=== PATIENT | male | born 1960 | race Caucasian/White ===

== ENCOUNTER → 2016-12-05 | Outpatient (CLI) | payer BC ==
--- NOTE | 2016-12-06 07:58 | HKNOTE ---
DATE OF SERVICE: 12/05/2016 MAIN COMPLAINT: Pain in the ____ knee. HISTORY OF MAIN COMPLAINT: The patient is a 56-year-old male who saw me more than 10 years ago, and I advised him that he would eventually need bilateral knee replacements. The patient had severe ar thritis back then, but note that he was maybe 46 years old and weighed 400 pounds and advised to los e weight in order to get him along without having surgery. He had already managed to lose 100 pound s with a gastric bypass operation. Because he thought I was still at the [facility] [place], he recently presente d himself at the [facility] [place]. [facility] that Dr. De León could manage his problem. In 09/2016, the patient underwent a ____ knee replacement by Dr. De León. He had extremely severe pain after the surgery and made a slow recov brian, and he also did not like the [facility]. Accordingly, he has decided to come and see me for possible surgery to his right knee. To complicate matters, the patient has a small unhealed spot ("scab") in the center of his inci gennaro. This has been draining for some time, but lately the drainage seems to have discontinued. Th e patient was put on Keflex by Dr. De León' physician's retail loan originator assistant. No cultures were obtained of t he wound. The patient continues to have severe pain in the right knee, and he states that he would like to hav e a right knee replacement "approximately around about December or January of this year." Note that radhika ent underwent a manipulation of the left knee for stiffness under general anesthetic, and this did n ot improve his range of motion very much. PRESENT COMPLAINTS: The patient's pain is in his right knee. He does have some mild pain in the le ft knee. He has had problems with the right knee for more than 22 years. His pain is aggravated by walking, weightbearing and stair climbing. He does get rest pain. He gets pain at night after he has been on his feet all day. The patient takes Butler several times a day for pain. He also takes tramadol. His best relief is "getting off my feet and lying down." He does have a history of probl ems with his lower back. He had an MRI scan which showed that he had a "herniated disk." He was tr eated with various anti-inflammatory medications and a muscle relaxant. He has no numbness or tingl ing in his legs. On a level surface, he can walk no more than about 100 yards at a time. He uses a cane at all times. He limps if he does not take any medications. He still limps with medications but much less. It is difficult for him to put on his shoes and socks or clip his toenails on either foot. SPORTING ACTIVITIES: The patient used to ski, hike and backpack, but he is no longer able to do any of those things. PAST ORTHOPEDIC HISTORY: PREVIOUS ORTHOPEDIC OPERATIONS: 1. Left knee arthroscopy by Dr. Orellana in 2001. 2. Right and left knee lateral releases by Dr. Ward Murdock in 1999. 3. Left total knee replacement by Dr. De León, 09/2016. PRIOR CORTISONE INTAKE: The patient has had prior cortisone injections into both knees. ALCOHOL INTAKE: Two alcoholic beverages a week. OTHER JOINT PROBLEMS: None. BLOOD TESTS FOR ARTHRITIS: None. PRIOR INJURIES TO HIPS OR KNEES: None. WORK STATUS: The patient is a career technical education teacher. He is on his feet about 6 hours a day. He has been off work since he had his left knee replacement, and he is hoping to get back to work around march of this year. PAST MEDICAL HISTORY: 1. Hypertension. 2. Diabetes. 3. Morbid obesity. PAST SURGICAL HISTORY: 1. Bilateral lateral releases on his knees by Dr. Murdock in 1999. 2. Left knee arthroscopy, Dr. Orellana, 2001. 3. Gastric bypass, 2006. 4. Gallbladder removed, 2015. 5. Left knee total knee replacement, Dr. De León, 2015. ALLERGIES TO MEDICATIONS: NONE. MEDICATIONS: 1. Butler 10/325 four times a day. 2. Prevacid 30 mg once a day. 3. Lipitor 10 mg a day. 4. Metaxalone 400 mg once a day. 5. Amlodipine 5 mg twice a day. 6. Zestril 40 mg once a day. 7. Metoprolol 100 mg twice a day. 8. Ativan 0.5 mg up to 3 times a day. 9. Voltaren gel 1% applied to the skin over his knee on a daily basis. 10. Keflex 500 mg 4 times a day given by Dr. De León' physician's retail loan originator assistant. FAMILY HISTORY: Father age 80, alive and well. Mother at 75 of cancer, diabetes and heart pro blems. SYSTEMS REVIEW: Age-related failing vision, excess night urination, hypertension, diabetes, occasio nal swelling of the ankles, habitual constipation. HABITS: The patient does not smoke. Drinks 2 to 3 alcoholic beverages a week. DRUM SAW OPERATOR: Dr. Danish Smith, [id number] [facility] [id number] [id number]. PHYSICAL EXAMINATION: GENERAL: The patient is a markedly overweight 56-year-old male. Remarkably, he walks fairly well u sing a cane. Without the cane, he has a marked antalgic gait. VITAL SIGNS: Height 5 feet 11 inches. Weight 310 pounds. Blood pressure 155/85, temperature 98.3. HIPS: Both hips have a full range of motion without pain. LEFT KNEE: Recent scar of recent surgery. Wound is healed, but there is a small scab in the middle of the wound which he has a Band-Aid on. The Band-Aid was removed. There was actually no drainage that could be expelled from the "scab." The patient indicates that he changes the Band-Aid daily a nd this is the first day that he has not had any drainage! He has no external sign of infection or inflammation. Extension is full, and flexion is to approximately 95 degrees. RIGHT KNEE: The left knee shows normal alignment. Active and passive extension lacks 15 degrees. Ac tive and passive flexion is to 100 degrees. The medial and lateral collateral ligaments and cruciate ligaments are intact. Ministerio test is negative. Varus alignment. There is 6+ crepitus in the knee and under the patella. There is no effusion, tenderness, scarring, or cysts. The patella tracks norm ally. There is no tenderness on the articular surface of the patella or in the patellar groove. The Q angle is normal. Pain at all limits of motion of the knee. IMAGING: Plain x-rays of the patient's right knee brought with the patient from the [facility] [place] were reviewed. The ____ knee showed a total knee replacement. All components are well placed and well attached to the bone. Imaging of the ____ knee shows exceedingly severe degenerative osteoarthritis of all 3 compartments of the knee but most severe in the medial compartment and patellofemoral compartment with bone-on-triny ne contact, subchondral sclerosis, large osteophytes around the distal femur and the patella. DIAGNOSES: 1. Exceedingly severe degenerative osteoarthritis of the ____ knee. 2. Status post ____ knee replacement. 3. A small unhealed scab on the anterior aspect of the ____ knee replacement scar. 4. Diabetes. 5. Hypertension. 6. Morbid obesity. MANAGEMENT: The patient has severe degenerative osteoarthritis of his right knee. He has had the c ondition for 22 years, and he has waited as long as he could before considering proceeding with knee replacement surgery. He is satisfied with Dr. De León' operation, but he hated the [facility], and he decided to see me in consultation in hope that I would perform the operation on his other knee and perform t he surgery "anywhere but [place]." The patient was advised that he is indeed a candidate for a right knee replacement. The surgery and some of the major possible complications were discussed with him in a fair amount of detail. The patient was given my manual titled "Arthritis of the Knee Joint" which contains information conc erning the various alternatives of treatment. It includes various forms of conservative treatment, i ncluding the use of nonsteroidal anti-inflammatory medications and their dangers. Various surgical a lternatives are discussed. The technique of total knee replacement is discussed in detail, including possible complications. Included also is a section on the possible complications of blood transfusi on, a section on postoperative precautions, and an exercise program to follow at home after total kn ee replacement. The long-term care of a total knee replacement implant is also covered in detail. Th e patient was instructed to read this manual in its entirety since it is, in and of itself, a form o f informed consent. After reading this manual, the patient will make a list of further questions zaki t may not have been covered adequately. The patient was further advised that this manual, although e xhaustive in nature, is only intended to supplement and complement a one-on-one discussion with me. FINAL DIAGNOSES: 1. Exceedingly severe degenerative osteoarthritis of the ____ knee. 2. Status post ____ knee replacement. 3. A small unhealed scab on the anterior aspect of the ____ knee replacement scar. 4. Diabetes. 5. Hypertension. 6. Morbid obesity. MANAGEMENT: Under sterile conditions, the left knee was aspirated to rule out infection. Clear, or kleber-colored fluid was obtained from the knee. Fluid was sent for cell count, culture and sensitivi ty. The patient is being sent for CBC, sedimentation rate and C-reactive protein. His antibiotic w as switched to Biaxin 500 mg p.o. q.i.d., which he will start taking today partly as a prophylaxis a gainst my sticking a needle in his knee and also to help the small unhealed scab heal. The patient was advised that we cannot operate on the other knee until the wound of the left knee re placement has completely healed. The patient indicates that he is not ready to proceed with the alex leslie at this time anyway. RETURN VISIT: The patient will be seen again in 2 weeks' time for evaluation of his lab data and fo r the further discussions about his surgery. Dictated By: MOHAMUD CORDERO/BASILIA Conf#: [id number] DID#: [id number]
== END | disposition home or self-care (01) ==
LOC: HKI 14:24
DX: M17.11 Unilateral primary osteoarthritis, right knee (principal); R23.4 Changes in skin texture; E11.9 Type 2 diabetes mellitus without complications; I10 Essential (primary) hypertension; E66.01 Morbid (severe) obesity due to excess calories; Z96.652 Presence of left artificial knee joint
CPT/HCPCS: 20610; G0463; J3301

== ENCOUNTER → 2016-12-19 | Outpatient (CLI) | payer BC ==
--- NOTE | 2016-12-20 07:00 | HKNOTE ---
DATE OF SERVICE: 12/19/2016 The wound over his left knee is now completely healed. The fluid aspirated from his left knee at nm s last visit obtained on 12/05/2016 is reported as showing no growth and no bacteria seen. No white cells seen either. The left knee has for all intents and purposes completely healed. There is no pain in the knee. He has a good range of motion. The patient comes in to discuss his right knee replacement. We spent considerable time talking abou t the technique I use (vastus split). The patient had his left knee replacement performed by Dr. Homar balderas. MANAGEMENT: These x-rays were reviewed. Knee surgery was discussed with him in terms of time and h ospital, postoperative recovery, etc. etc. The patient was given my manual titled "Arthritis of the Knee Joint" which contains information conc erning the various alternatives of treatment. It includes various forms of conservative treatment, i ncluding the use of nonsteroidal anti-inflammatory medications and their dangers. Various surgical a lternatives are discussed. The technique of total knee replacement is discussed in detail, including possible complications. Included also is a section on the possible complications of blood transfusi on, a section on postoperative precautions, and an exercise program to follow at home after total kn ee replacement. The long-term care of a total knee replacement implant is also covered in detail. Th e patient was instructed to read this manual in its entirety since it is, in and of itself, a form o f informed consent. After reading this manual, the patient will make a list of further questions zaki t may not have been covered adequately. The patient was further advised that this manual, although e xhaustive in nature, is only intended to supplement and complement a one-on-one discussion with me. The patient will have his surgery scheduling with my rehab care assistant, Bertin. [facility] Dictated By: MOHAMUD CORDERO/BASILIA Conf#: [id number] DID#: [id number]
== END | disposition home or self-care (01) ==
LOC: HKI 13:56
DX: Z04.8 Encounter for examination and observation for other specified reasons (principal); Z96.652 Presence of left artificial knee joint

== ENCOUNTER 2017-01-16 07:00 | Inpatient (IN) | payer BC ==
--- NOTE | 2017-01-13 13:39 | CONS ---
DATE OF ADMISSION: 01/16/2017 DATE OF CONSULTATION: REASON FOR ADMISSION: He is being admitted by Dr. Orellana on 01/16/2017 for planned right total knee replacement. HISTORY OF PRESENT ILLNESS: This is a 56-year-old gentleman with severe DJD of the right knee who i s to undergo definitive right total knee replacement per Dr. Orellana. The patient is several months out, status post a left total knee replacement with Dr. De León done over in [place]. He did have problems with stiffness postop. His surgery day was 09/23/2016 and ultimately he underw ent an examination under anesthesia on 11/19/2016, with improvement in his range of motion. He is now therefore ready to undergo definitive right total knee replacement with Dr. Orellana. For further orthopedic history, please see the full evaluation per Dr. Orellana. Medically, the patient has a known history of hypertension and diabetes, currently well controlled o n medications. He has not had any recent chest pain, shortness of breath, syncope, presyncope, or any palpitations. There have been no recent fevers, chills, sweats, nausea, vomiting, diarrhea or constipation. He did tolerate the recent left total knee replacement without any postoperative complications. PAST MEDICAL HISTORY: Please see full dictated problem list. ALLERGIES: NEXIUM. HABITS: Tobacco: None. Alcohol: None. CURRENT MEDICATIONS: 1. Chalmers 10/325 one to 2 tabs q.6h. p.r.n. pain. 2. Lorazepam 0.5 mg at bedtime p.r.n. 3. Lipitor 10 mg daily. 4. Skelaxin 400 mg q.8h. p.r.n. 5. Zestril 40 mg p.o. daily. 6. Lopressor 100 mg b.i.d. 7. Amlodipine 5 mg b.i.d. 8. Lansoprazole 30 mg daily. 9. Gabapentin 100 mg 3 caps at night. REVIEW OF SYSTEMS: As per HPI. PHYSICAL EXAMINATION: GENERAL: Awake and alert gentleman complaining of right knee pain, otherwise in no distress. VITAL SIGNS: He is afebrile, blood pressure 124/72, heart rate 72 and regular, respirations are 12 and unlabored, O2 saturation is normal on room air. SKIN: Warm, well perfused. HEAD: Normocephalic, atraumatic. EYES: Pupils are equal, round, reactive. Extraocular movements are full. Sclerae are anicteric. PHARYNX: No lesions. NECK: JVP is not distended. No adenopathy or thyromegaly. Carotids are 2+, no bruits. BACK: No CVAT. LUNGS: Clear. HEART: S1, S2, regular rate and rhythm, no murmurs. ABDOMEN: Obese, soft, nontender, well healed laparoscopy scars. There is no organomegaly, masses o r bruits. EXTREMITIES: No cyanosis or clubbing. He has 1 to 2+ chronic brawny type edema bilaterally. There is no calf pain, no Homans sign. LABORATORY DATA: Please see enclosed. PROBLEM LIST: 1. Severe DJD of the right knee for planned right total knee replacement. 2. Status post left total knee replacement on 09/23/2016. 3. Status post examination under anesthesia, left knee on 11/19/2016, with good response. 4. Hypertension, currently well controlled. 5. Hyperlipidemia, controlled on medications. 6. Noninsulin dependent diabetes mellitus, currently diet controlled. 7. Obesity status post prior gastric bypass with a Zac-en-Y procedure in March of 2007. 8. Iron deficiency anemia due to above, treated with IV Venofer as an outpatient. 9. GERD, currently controlled on PPI. 10. Prior history of cholecystitis status post laparoscopic cholecystectomy in 11/2015, asymptomati c since. 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 Currently, follow closely with EGD with Dr. Goff RECOMMENDATIONS: The patient is medically cleared for planned surgery. I will be happy to follow h im in the postoperative period. Dictated By: ADY FLANAGAN MD, MM/BASILIA Conf#: [id number] DID#: [id number]
[~2017-01-16] VITALS: Ht 180.3 cm; Wt 143.0 kg
[2017-02-06] MEDS ORDERED: KNEE PAIN COCKTAIL VANCO INJ SCH ×6 (05:30)
[2017-02-10 09:35] VITALS: BMI 44.7
[2017-02-12] MEDS ORDERED: KNEE PAIN COCKTAIL VANCO INJ SCH ×6 (18:30)
[2017-02-13] VITALS (29 sets, daily range): BP systolic 106–159; BP diastolic 47–82; PULSE 68–89; RESP 11–35; Ht 180.3 cm; Wt 143.0 kg
[2017-02-13] MEDS ORDERED: LACTATED RINGER'S 1,000 ML IV* SCH (06:00)
[2017-02-13] MEDS ORDERED: oxyCODONE (CR) 10 MG TAB [oxyCONTIN] PO ONE (06:00)
[2017-02-13] MEDS ORDERED: VANCOMYCIN 1 GM (PMX) 250 ML IVPB ONE (06:00)
[2017-02-13] MEDS ORDERED: CELECOXIB 200 MG CAP PO ONE (06:00)
[2017-02-13] MEDS ORDERED: TRANEXAMIC ACID 2,000 MG in SOD CHLORIDE 0.9% 100 ML IVPB ONE (06:00)
[2017-02-13] MEDS ORDERED: DEXAMETHASONE 4 MG/ML 1 ML INJ IV ONE (06:00)
[2017-02-13] MEDS ORDERED: ACETAMINOPHEN 1000MG/100ML IV 100 ML IVPB ONE (06:00)
[2017-02-13] MEDS ORDERED: LANSOPRAZOLE 30 MG CAP PO ONE (06:00)
[2017-02-13] MEDS ORDERED: ONDANSETRON 4 MG INJ IV ONE (06:00)
[2017-02-13] MEDS ORDERED: BUPIVACAINE 0.5%/EPI (SDV) 30 ML INJ ONE (06:43)
[2017-02-13] MEDS ORDERED: POLYMYXIN B 500000 UNIT INJ ONE (06:47)
[2017-02-13] MEDS ORDERED: VANCOMYCIN 1 GM INJ ONE (06:47)
[2017-02-13] MEDS ORDERED: BUPIVACAINE 0.25% (MPF) 30 ML INJ ONE (06:47)
[2017-02-13] MEDS ORDERED: METHYLENE BLUE 1% 10 ML INJ ONE (06:48)
[2017-02-13] MEDS ORDERED: TOBRAMYCIN 1.2 GM POWDER ONE (06:48)
--- NOTE | 2017-02-13 06:48 | HPN ---
Date/Time of Note Date/Time of Note DATE: 02/13/17 TIME: 06:48 Interval H&P Admission Note Pt. seen H&P reviewed: No system changes MELANY MALIK PA-C February 13, 2017 06:48
[2017-02-13] MEDS ORDERED: LISI40TA9 PO (07:08)
[2017-02-13] MEDS ORDERED: GABA300C PO (07:08)
[2017-02-13] MEDS ORDERED: ATOR10TA65 PO (07:08)
[2017-02-13] MEDS ORDERED: LORA-441 PO (07:08)
[2017-02-13] MEDS ORDERED: META400T PO (07:08)
[2017-02-13] MEDS ORDERED: AMLO-145 PO (07:08)
[2017-02-13] MEDS ORDERED: METO100T13 PO (07:08)
[2017-02-13] MEDS ORDERED: HYDR-902 PO (07:08)
[2017-02-13] MEDS ORDERED: DIPH25TA68 PO (07:08)
[2017-02-13] MEDS ORDERED: LANS30CA PO (07:08)
[2017-02-13] MEDS ORDERED: PSEU120T51 PO (07:08)
[2017-02-13] MEDS ORDERED: SOD CHLORIDE 0.9% 50 ML, TRANEXAMIC ACID 2,000 MG IRR SCH ×2 (07:30)
[2017-02-13] MEDS ORDERED: LIDOCAINE 2% (SDV) 5 ML INJ ONE (07:39)
[2017-02-13] MEDS ORDERED: PROPOFOL 20 ML ONE (07:39)
[2017-02-13] MEDS ORDERED: BUPIVACAINE 0.25%/EPI (SDV) 30 ML INJ INJ ONE (08:15)
[2017-02-13] MEDS ORDERED: VANCOMYCIN 1 GM INJ IRR ONE (08:18)
[2017-02-13] MEDS ORDERED: BACITRACIN 50000 UNITS INJ IRR ONE (08:19)
[2017-02-13] MEDS ORDERED: POLYMYXIN B 500000 UNIT INJ IRR ONE (08:20)
[2017-02-13] MEDS ORDERED: HYDROmorphONE 0.2 MG/ML PCA IV PRN (11:30)
[2017-02-13] MEDS ORDERED: MAGNESIUM HYDROXIDE 30ML CUP PO PRN (11:30)
[2017-02-13] MEDS ORDERED: DOCUSATE SODIUM 100 MG CAP PO ONE (11:30)
[2017-02-13] MEDS ORDERED: ZOLPIDEM 5 MG TAB PO PRN (11:30)
[2017-02-13] MEDS ORDERED: BETHANECHOL 25 MG TAB PO PRN (11:30)
[2017-02-13] MEDS ORDERED: DIPHENHYDRAMINE 50 MG INJ IM PRN (11:30)
[2017-02-13] MEDS ORDERED: NA PHOSPHATE/BIPHOS 133 ML ENEMA PR PRN (11:30)
[2017-02-13] MEDS ORDERED: COUMADIN NOTE XX SCH (11:30)
[2017-02-13] MEDS ORDERED: oxyCODONE 5 MG TAB PO PRN (11:30)
[2017-02-13] MEDS ORDERED: NALOXONE (0.4 MG/ML) INJ IV PRN (11:30)
[2017-02-13] MEDS ORDERED: TRANEXAMIC ACID IVPB ONE ×4 (11:30)
[2017-02-13] MEDS ORDERED: SOD CHLORIDE 0.9% IVPB ONE ×4 (11:30)
[2017-02-13] MEDS ORDERED: SENNA/DOCUSATE NA (8.6MG/50MG) TAB PO PRN (11:30)
[2017-02-13] MEDS ORDERED: MEPERIDINE 10 MG/ML 30 ML PCA IV PRN (11:30)
[2017-02-13] MEDS ORDERED: BISACODYL 10 MG SUPP PR PRN (11:30)
[2017-02-13] MEDS ORDERED: WARFARIN 7.5 MG TAB PO ONE (11:30)
--- NOTE | 2017-02-13 12:00 | RADRPT ---
PROCEDURE: XR right knee. CLINICAL INDICATION: Total knee replacement. TECHNIQUE: AP and lateral views are available for review. COMPARISON: No comparison available FINDINGS: There is a total knee replacement. There is no evidence of loosening of the prosthesis. There is no evidence of hardware failure. There are surgical instruments overlying the right knee The osseous st ructures are normal in mineralization, architecture and alignment No acute fracture or dislocation i s seen.No osseous lesions are identified. There are operative soft tissue changes . IMPRESSION: Unremarkable operative total knee replacement. RPTAT: HGDB .Yousif Jones MD, MD Date Time Electronically viewed and signed by .Yousif Jones MD, on 02/13/2017 11:59 .B/
[2017-02-13] MEDS: ACETAMINOPHEN 1000MG/100ML IV 100 ML IVPB SCH ×2 (12:06→19:50)
[2017-02-13] MEDS: ONDANSETRON 4 MG INJ IV SCH ×2 (12:06→17:57)
[2017-02-13] MEDS: CEFAZOLIN 1 GM/50 ML (PMX) 50 ML IVPB SCH ×2 (12:08→19:05)
--- NOTE | 2017-02-13 12:16 | RADRPT ---
PROCEDURE: Right knee radiographs. CLINICAL INDICATION: Right knee pain. Postop. TECHNIQUE: Two views. Frontal and lateral. COMPARISON: No prior studies are available for comparison. FINDINGS: There is no fracture or dislocation. Anterior skin olga and surgical drains are noted. There is gas in the soft tissues from the rece nt surgery. There is a total right knee constrained arthroplasty which appears satisfactory. There is no lytic or blastic lesion. There is no joint effusion. IMPRESSION: 1. Satisfactory postoperative appearance of the right knee. RPTAT: QQ .Abelardo Castillo MD, MD Date Time Electronically viewed and signed by .Abelardo Castillo MD, MD on 02/13/2017 12:16 .R/
--- NOTE | 2017-02-13 12:25 | CONS ---
Date/Time of Note Date/Time of Note DATE: 02/13/17 TIME: 12:21 Assessment/Plan Assessment/Plan Problems: (1) Total knee replacement status Comment: seen here in RR...doing fine... hemodyn stable (2) HTN (hypertension) Comment: good control (3) Hyperlipidemia Comment: on meds (4) Diabetes mellitus Comment: diet controlled...with do SS w coverage (5) GERD (gastroesophageal reflux disease) Comment: stable Consultation Date/Type/Reason Admit Date/Time February 13, 2017 at 05:50 Initial Consult Date Type of Consultation: im 24 HR Interval Summary Free Text/Dictation pt seen on RR...A&O.. min pain.. no cp or sob Exam/Review of Systems Vital Signs Vitals Vital Signs Date Time Temp Pulse Resp B/P Pulse Ox O2 Delivery O2 Flow Rate FiO2 02/13/17 11:22 100.2 02/13/17 06:00 69 18 132/76 97 Room Air Exam Constitutional: alert, oriented Neck: supple Respiratory: clear to auscultation Cardiovascular: regular rate and rhythm Gastrointestinal: nl liver, spleen, soft Extremities: normal pulses (Rt knee wrapped w drain in place) Results Results 24 hrs Laboratory Tests Test 02/13/17 06:31 02/13/17 11:22 Bedside Glucose 219 238 H Medications Medications Current Medications Ropivacaine/ Morphine Sulfate/ Clonidine/ Ketorolac Tromethamine/ Vancomycin HCl / Sodium Chloride INTRA-OP INJ Last administered on 02/13/17 08:16; Admin Dose 116 ML; Start 02/12/17 at 18:30; Stop 02/15/17 at 18:29 Sodium Chloride 50 ml/Tranexamic Acid 2000 mg INTRA-OP IRR Last administered on 02/13/17 08:21; Admin Dose 70 ML; Start 02/13/17 at 07:30; Stop 02/13/17 at 12: 30 Lactated Ringer's 1,000 ml @ 125 mls/hr Q8H IV* Last administered on 02/13/17 06:38; Admin Dose 125 MLS/HR; Start 02/13/17 at 06:00; Stop 02/13/17 at 13:59 Dextrose/Lactated Ringer's (D5-Lr) 1,000 ml @ 80 mls/hr [id number] IV ; Start 02/13 at 11:11 Hydromorphone HCl (Dilaudid FOUNDRY WORKER APPRENTICE) Q4PCA PRN IV SEVERE PAIN 8-10; Start 02/13/17 at 11:30; Stop 02/14/17 at 11:29 Meperidine HCl (Demerol FOUNDRY WORKER APPRENTICE) Q4PCA PRN IV SEVERE PAIN 8-10; Start 02/13/17 at 11:30; Stop 02/14/17 at 11:29 Oxycodone HCl (Roxicodone) 20 mg Q3H PRN PO PAIN LEVEL 8-10; Start 02/13/17 at 11:30 Oxycodone HCl (Roxicodone) 10 mg Q3H PRN PO PAIN LEVEL 4-7; Start 02/13/17 at 11 :30 Oxycodone HCl 5 mg 5 mg Q3H PRN PO PAIN LEVEL 1-3; Start 02/13/17 at 11:30 Acetaminophen (Ofirmev 1000mg/ 100ml Iv) 100 ml @ 400 mls/hr Q8H IVPB Last administered on 02/13/17 12:06; Admin Dose 400 MLS/HR; Start 02/13/17 at 11:30; Stop 02/15/17 at 03:44 Zolpidem Tartrate (Ambien) 5 mg HS PRN PO INSOMNIA; Start 02/13/17 at 11:30 Ondansetron HCl 4 mg 4 mg Q6H IV Last administered on 02/13/17 12:06; Admin Dose 4 MG; Start 02/13/17 at 11:30; Stop 02/14/17 at 05:31 Cefazolin Sodium (Ancef 1 Gm/50 ml (Pmx)) 50 ml @ 100 mls/hr Q8H IVPB Last administered on 02/13/17 12:08; Admin Dose 100 MLS/HR; Start 02/13/17 at 11:30; Stop 02/14/17 at 03:59 Miscellaneous Information (Note) NOTE XX ; Start 02/13/17 at 11:30 Dexamethasone (Decadron) 4 mg DAILY@07 IV ; Start 02/14/17 at 07:00; Stop at 06:59 Pantoprazole (Protonix Tab) 40 mg DAILY@06 PO ; Start 02/15/17 at 06:00 Docusate Sodium/ Ferrous Fumarate (Merary-Sequels) 1 tab BID PO ; Start 02/14/17 at 09:00 Docusate Sodium (Colace) 200 mg BID PO ; Start 02/14/17 at 09:00; Stop 02/17/17 at 08:59 Simethicone (Mylicon) 80 mg TID PRN PO DISTENSION/GAS/BLOATING; Start 02/13/17 at 11:30 Senna/Docusate Sodium (Senokot-S) 2 tab BID PRN PO CONSTIPATION; Start 02/13/17 at 11:30 Magnesium Hydroxide (Milk Of Mag) 30 ml HS PRN PO CONSTIPATION; Start 02/13/17 at 11:30 Bisacodyl (Dulcolax Supp) 10 mg DAILY PRN [place] CONSTIPATION; Start 02/13/17 at 11: 30 Sodium Biphosphate/ Sodium Phosphate (Fleet Enema) 133 ml DAILY PRN [place] CONSTIPATION; Start 02/13/17 at 11:30 Diphenhydramine HCl (Benadryl) 25 mg Q4H PRN IM ITCHING OR RASH; Start 02/13/17 at 11:30 Ketorolac Tromethamine (Toradol) 15 mg DAILY@06 PRN INJ ADMINSTER BY SURGEON ONLY; Start 02/14/17 at 06:00; Stop 02/18/17 at 05:59 Bupivacaine HCl/ Epinephrine Bitart (Marcaine 0.25%/ Epi (Sdv) 30 ml) 20 ml DAILY@06 PRN INJ ADMINSTER BY SURGEON ONLY; Start 02/14/17 at 06:00; Stop at 05:59 Naloxone HCl (Narcan) 0.2 mg Q2M PRN IV DECREASED REPIRATORY RATE; Start at 11:30 Warfarin Sodium (Coumadin) 5 mg NOW ONCE PO ; Start 02/13/17 at 12:30; Stop 02/13 at 12:31; Status UNV ADY FLANAGAN MD February 13, 2017 12:25
[2017-02-13] MEDS ORDERED: morphine (1 MG/ML) 10ML SYRINGE IV PRN ×2 (12:30)
[2017-02-13] MEDS ORDERED: METOCLOPRAMIDE 10 MG INJ IV PRN (12:30)
[2017-02-13] MEDS ORDERED: MEPERIDINE 25 MG INJ IV PRN (12:30)
[2017-02-13] MEDS ORDERED: HYDROmorphONE (0.2 MG/ML) 10ML SYG IV PRN ×2 (12:30)
[2017-02-13] MEDS ORDERED: WARFARIN 5 MG TAB PO ONE (12:30)
[2017-02-13] MEDS ORDERED: EPHEDrine SULFATE 50 MG/5 ML SYG IV PRN (12:30)
[2017-02-13] MEDS ORDERED: FENTAnyl 50 MCG/ML VIAL IV PRN ×2 (12:30)
[2017-02-13] MEDS ORDERED: DIPHENHYDRAMINE 50 MG INJ IV PRN (12:30)
[2017-02-13] MEDS ORDERED: hydrALAzine 20 MG INJ IV PRN (12:30)
[2017-02-13] MEDS ORDERED: MIDAZOLAM 1 MG/ML 2 ML INJ IV PRN (12:30)
[2017-02-13] MEDS ORDERED: LABETALOL HCL 20MG INJ IV PRN (12:30)
[2017-02-13] MEDS ORDERED: ONDANSETRON 4 MG INJ IV PRN (12:30)
[2017-02-13] MEDS ORDERED: GLUCOSE GEL 15 GRAM TUBE PO PRN ×2 (13:00)
[2017-02-13] MEDS ORDERED: GLUCOSE GEL 15 GRAM TUBE BUCCAL PRN (13:00)
[2017-02-13] MEDS ORDERED: DEXTROSE 50% 50 ML SYRINGE IV PRN ×2 (13:00)
[2017-02-13] MEDS ORDERED: GLUCAGON 1 MG INJ IM PRN (13:00)
[2017-02-13] MEDS: DEXTROSE 5%-LR 1,000 ML IV SCH ×2 (15:42→23:41)
[2017-02-13] MEDS: INSULIN ASPART [NOVOLOG] 3 ML PEN SC SCH ×2 (17:57→20:58)
[2017-02-13] MEDS: METOPROLOL 100 MG TAB PO SCH (20:52)
[2017-02-13] MEDS: ATORVASTATIN 10 MG TAB PO SCH (20:52)
[2017-02-13] MEDS: oxyCODONE 5 MG TAB PO PRN (21:00)
[2017-02-14] VITALS: BP 160/90; PULSE 82; RESP 18
[2017-02-14] MEDS: oxyCODONE 5 MG TAB PO PRN ×6 (00:22→21:31)
[2017-02-14] MEDS: ONDANSETRON 4 MG INJ IV SCH ×2 (00:22→06:11)
[2017-02-14 00:39] VITALS: BP 162/90; RESP 20
[2017-02-14] MEDS: ACCU-CHEK XX SCH (02:00)
[2017-02-14] MEDS: ACETAMINOPHEN 1000MG/100ML IV 100 ML IVPB SCH ×3 (03:44→19:34)
[2017-02-14] MEDS: CEFAZOLIN 1 GM/50 ML (PMX) 50 ML IVPB SCH (04:18)
[2017-02-14 04:22] VITALS: BP 152/75; PULSE 79; RESP 18
[2017-02-14 05:14] LABS: ADD SCAN DIFF NO
[2017-02-14 05:18] LABS: BASOPHILS % 0.2 % (0.0-2.0); EOSINOPHILS % 0.1 % (0.0-7.0); HEMATOCRIT 33.3 % (42.0-52.0); HEMOGLOBIN 10.9 g/dl (14.0-18.0); LYMPHOCYTES # 2.2 10^3/ul (0.8-2.9); LYMPHOCYTES % 17.1 % (15.0-51.0); MEAN CORPUSCULAR HGB CONC 32.7 g/dl (32.0-37.0); MEAN CORPUSCULAR VOLUME 82.6 fl (82.0-101.0); MEAN PLATELET VOLUME 9.9 fl (7.4-10.4); MONOCYTE # 1.3 10^3/ul (0.3-0.9); MONOCYTES % 10.2 % (0.0-11.0); NEUTROPHIL # 9.4 10^3/ul (1.6-7.5); NEUTROPHILS % 71.7 % (39.0-77.0); PLATELET COUNT 270 10^3/UL (140-415); RED BLOOD COUNT 4.03 10^6/ul (4.70-6.10); RED CELL DISTRIBUTION WIDTH 14.3 % (11.5-14.5); WHITE BLOOD COUNT 13.1 10^3/ul (4.8-10.8)
[2017-02-14 05:40] LABS: INR 1.05; PROTIME 13.7 Sec (12.2-14.2); PT RATIO 1.1
[2017-02-14 05:45] LABS: ALBUMIN 3.5 g/dl (3.3-4.9); ALBUMIN/GLOBULIN RATIO 1.16; BILIRUBIN,INDIRECT 0.7 mg/dl (0-1.1); BILIRUBIN,TOTAL 0.7 mg/dl (0.2-1.3); CALCIUM 8.8 mg/dl (8.4-10.2); CREATININE 0.64 mg/dl (0.61-1.24); POTASSIUM 3.6 mmol/L (3.5-5.1); TOTAL PROTEIN 6.5 g/dl (6.1-8.1)
[2017-02-14] MEDS ORDERED: BUPIVACAINE 0.25%/EPI (SDV) 30 ML INJ INJ PRN (06:00)
[2017-02-14] MEDS ORDERED: KETOROLAC 15 MG INJ INJ PRN (06:00)
[2017-02-14] MEDS: DEXAMETHASONE 4 MG/ML 1 ML INJ IV SCH (07:00)
--- NOTE | 2017-02-14 08:02 | PN ---
Date/Time of Note Date/Time of Note DATE: 02/14/17 TIME: 07:59 Assessment/Plan VTE Prophylaxis VTE Prophylaxis Intervention: ambulation, SCD's, other (Warfarin 5 mg. Currently being monitored by internal medicine.) Lines/Catheters IV Catheter Type (from Nrsg): Peripheral IV Valero in Place (from Nrsg): No Assessment/Plan Assessment/Plan -Hemovac Removed Today. Overall 420 cc output. -Pain Cocktail Given -Pain Meds as needed -Dress change performed today -OOB with PT -Warfarin/SCDs for DVT Prophylaxis -Continue monitoring with Internal Medicine -Patient Stable Subjective 24 Hr Interval Summary 56-year-old male postop day 1 status post right total knee arthroplasty. Patient had increased drainage since the surgery of around 420 cc output. Overall red blood cell and hemoglobin are lower but so far internal medicine does not recommend infusion as he is also having no symptoms. Patient states that overall he is okay. Denies any chest pain/tightness. In regards to the knee patient did have some discomfort initially but experiencing no pain now. Patient did have physical therapy after surgery yesterday. Up and out of bed with use of front wheeled walker. Denies any calf pain. Continues to progress well. Dexamethasone was stopped due to increased glucose with pre-existing history of diabetes. Pain Control: well controlled Exam/Review of Systems Vital Signs Vitals Vital Signs Date Time Temp Pulse Resp B/P Pulse Ox O2 Delivery O2 Flow Rate FiO2 02/14/17 04:22 98.3 79 18 152/75 98 Room Air 02/13/17 17:44 2.0 Intake and Output 02/13/17 02/13/17 02/14/17 14:59 22:59 06:59 Intake Total 1140 ml 1208.6 ml 1530 ml Output Total 270 ml 2050 ml 1300 ml Balance 870 ml -841.4 ml 230 ml Exam Free Text/Dictation -Hemovac: Intact. 120 cc output after previous 300 cc output was removed yesterday. -Pain Cocktail Drains: Intact -Incision: Clean, Dry and Intact without any redness or drainage -02/14 Tibialis Anterior, EHL Gastrocnemius/Soleus and Peroneals -Normal Sensation -Palpable DP/PT, Capillary Refill <2 secs -No Distal Edema -Negative Theresa Sign/No calf pain -Toes Freely Movable Constitutional: alert, oriented, well developed Results Result Diagram: 02/14/17 0450 02/14/17 0450 MELANY MALIK PA-C February 14, 2017 08:02
--- NOTE | 2017-02-14 08:07 | PDOCDIS ---
Discharge Instructions DIAGNOSIS Discharge Diagnosis: Status post right total knee replacement. CONDITION Patient Condition: Stable HOME CARE INSTRUCTIONS: Diet Instructions: Regular ACTIVITY: Activity Restrictions: Slowly Increase Activity Rest between Activity Avoid heavy lifting No Sexual Activity Do not Drive Do not operate Machinery Do not operate Power Tool Avoid Heavy Housework Keep Limb Elevated (With ice while at rest.) Weight Bearing (As tolerated. May use front wheeled walker for assisted ambulation.) Bathing Restrictions: Shower (Using Tegaderm with pad. Apply prior to shower. Pat region dry before removing Tegaderm. Repeat instructions each day with new Tegaderm dressing until olga are removed around 10 days postoperatively.) FOLLOW UP/APPOINTMENTS Appointments March 04, 2017 at 2:15 PM MELANY MALIK PA-C February 14, 2017 08:07
[2017-02-14 08:17] VITALS: BP 156/78; RESP 18
--- NOTE | 2017-02-14 08:27 | CONS ---
Date/Time of Note Date/Time of Note DATE: 02/14/17 TIME: 08:25 Assessment/Plan Assessment/Plan Additional Assessment/Plan 1. Stable post op right knee replacement, on Coumadin for dvt prophylaxis 2. DM, sugar control acceptable for now 3. Hx gastric bypass 4. HBP, controlled Consultation Date/Type/Reason Admit Date/Time February 13, 2017 at 05:50 Initial Consult Date Type of Consultation: im Detailed Summary Respiratory: No cough, No shortness of breath Cardiovascular: No chest pain, No lightheadedness Gastrointestinal: No no complaints Genitourinary: no complaints Musculoskeletal: bone/joint pain (mild right knee discomfort) Exam/Review of Systems Vital Signs Vitals Vital Signs Date Time Temp Pulse Resp B/P Pulse Ox O2 Delivery O2 Flow Rate FiO2 02/14/17 08:17 98.0 77 18 156/78 97 02/14/17 04:22 Room Air 02/13/17 17:44 2.0 Intake and Output 02/13/17 02/13/17 02/14/17 15:00 23:00 07:00 Intake Total 1140 ml 1208.6 ml 1530 ml Output Total 270 ml 2050 ml 1300 ml Balance 870 ml -841.4 ml 230 ml Exam Neck: No jvd Respiratory: clear to auscultation Cardiovascular: regular rate and rhythm Gastrointestinal: soft Extremities: No edema (and no calf tend) Results Result Diagram: 02/14/17 0450 02/14/17 0450 Results 24 hrs Laboratory Tests Test 02/13/17 11:22 02/13/17 15:47 02/13/17 20:51 02/14/17 02:13 Bedside Glucose 238 H 293 H 261 H 185 Test 02/14/17 04:50 02/14/17 07:56 White Blood Count 13.1 H Red Blood Count 4.03 L Hemoglobin 10.9 L Hematocrit 33.3 L Mean Corpuscular Volume 82.6 Mean Corpuscular Hemoglobin 27.0 L Mean Corpuscular Hemoglobin Concent 32.7 Red Cell Distribution Width 14.3 Platelet Count 270 Mean Platelet Volume 9.9 Neutrophils % 71.7 Lymphocytes % 17.1 Monocytes % 10.2 Eosinophils % 0.1 Basophils % 0.2 Nucleated Red Blood Cells % 0.0 Neutrophils # 9.4 H Lymphocytes # 2.2 Monocytes # 1.3 H Eosinophils # 0.0 Basophils # 0.0 Nucleated Red Blood Cells # 0.0 Prothrombin Time 13.7 Prothrombin Time Ratio 1.1 INR International Normalized Ratio 1.05 Sodium Level 134 L Potassium Level 3.6 Chloride Level 102 Carbon Dioxide Level 27 Anion Gap 9 Blood Urea Nitrogen 13 Creatinine 0.64 Glucose Level 168 Hemoglobin A1c 8.6 H Calcium Level 8.8 Total Bilirubin 0.7 Direct Bilirubin 0.00 Indirect Bilirubin 0.7 Aspartate Amino Transf (AST/SGOT) 54 H Alanine Aminotransferase (ALT/SGPT) 46 Alkaline Phosphatase 103 Total Protein 6.5 Albumin 3.5 Globulin 3.00 Albumin/Globulin Ratio 1.16 Bedside Glucose 187 Medications Medications Current Medications Ropivacaine 60 ml/ Morphine Sulfate 4 mg/Clonidine 100 mcg/Ketorolac Tromethamine 30 mg/Vancomycin HCl 500 mg/Sodium Chloride 50 ml INTRA-OP INJ Last administered on 02/13/17 08:16; Admin Dose 116 ML; Start 02/12/17 at 18:30; Stop 02/15/17 at 18:29 Dextrose/Lactated Ringer's (D5-Lr) 1,000 ml @ 80 mls/hr [id number] IV Last administered on 02/13/17 15:42; Admin Dose 80 MLS/HR; Start 02/13/17 at 11:11 Hydromorphone HCl (Dilaudid CONTINUOUS VULCANIZING MACHINE OPERATOR) Q4PCA PRN IV SEVERE PAIN 8-10; Start 02/13/17 at 11:30; Stop 02/14/17 at 11:29 Meperidine HCl (Demerol CONTINUOUS VULCANIZING MACHINE OPERATOR) Q4PCA PRN IV SEVERE PAIN 8-10; Start 02/13/17 at 11:30; Stop 02/14/17 at 11:29 Oxycodone HCl (Roxicodone) 20 mg Q3H PRN PO PAIN LEVEL 8-10 Last administered on 02/14/17 03:33; Admin Dose 20 MG; Start 02/13/17 at 11:30 Oxycodone HCl (Roxicodone) 10 mg Q3H PRN PO PAIN LEVEL 4-7 Last administered on 02/14/17 00:22; Admin Dose 10 MG; Start 02/13/17 at 11:30 Oxycodone HCl 5 mg 5 mg Q3H PRN PO PAIN LEVEL 1-3; Start 02/13/17 at 11:30 Acetaminophen (Ofirmev 1000mg/ 100ml Iv) 100 ml @ 400 mls/hr Q8H IVPB Last administered on 02/14/17t 03:44; Admin Dose 400 MLS/HR; Start 02/13/17 at 11:30; Stop 02/15/17 at 03:44 Zolpidem Tartrate (Ambien) 5 mg HS PRN PO INSOMNIA; Start 02/13/17 at 11:30 Miscellaneous Information (Note) NOTE XX ; Start 02/13/17 at 11:30 Dexamethasone (Decadron) 4 mg DAILY@07 IV ; Start 02/14/17 at 07:00; Stop at 06:59 Pantoprazole (Protonix Tab) 40 mg DAILY@06 PO ; Start 02/15/17 at 06:00 Docusate Sodium/ Ferrous Fumarate (Merary-Sequels) 1 tab BID PO ; Start 02/14/17 at 09:00 Docusate Sodium (Colace) 200 mg BID PO ; Start 02/14/17 at 09:00; Stop 02/17/17 at 08:59 Simethicone (Mylicon) 80 mg TID PRN PO DISTENSION/GAS/BLOATING; Start 02/13/17 at 11:30 Senna/Docusate Sodium (Senokot-S) 2 tab BID PRN PO CONSTIPATION; Start 02/13/17 at 11:30 Magnesium Hydroxide (Milk Of Mag) 30 ml HS PRN PO CONSTIPATION; Start 02/13/17 at 11:30 Bisacodyl (Dulcolax Supp) 10 mg DAILY PRN CA CONSTIPATION; Start 02/13/17 at 11: 30 Sodium Biphosphate/ Sodium Phosphate (Fleet Enema) 133 ml DAILY PRN CA CONSTIPATION; Start 02/13/17 at 11:30 Diphenhydramine HCl (Benadryl) 25 mg Q4H PRN IM ITCHING OR RASH; Start 02/13/17 at 11:30 Ketorolac Tromethamine (Toradol) 15 mg DAILY@06 PRN INJ ADMINSTER BY SURGEON ONLY; Start 02/14/17 at 06:00; Stop 02/18/17 at 05:59 Bupivacaine HCl/ Epinephrine Bitart (Marcaine 0.25%/ Epi (Sdv) 30 ml) 20 ml DAILY@06 PRN INJ ADMINSTER BY SURGEON ONLY; Start 02/14/17 at 06:00; Stop at 05:59 Naloxone HCl (Narcan) 0.2 mg Q2M PRN IV DECREASED REPIRATORY RATE; Start at 11:30 Atorvastatin Calcium (Lipitor) 10 mg HS PO Last administered on 02/13/17 20:52 ; Admin Dose 10 MG; Start 02/13/17 at 21:00 Lisinopril (Zestril) 40 mg DAILY PO ; Start 02/14/17 at 09:00 Amlodipine Besylate (Norvasc) 5 mg DAILY PO ; Start 02/14/17 at 09:00 Metoprolol Tartrate (Lopressor) 100 mg BID PO Last administered on 02/13/17 20: 52; Admin Dose 100 MG; Start 02/13/17 at 21:00 Diagnostic Test (Pha) (Accu-Chek) 1 ea 02 XX ; Start 02/14/17 at 02:00 Miscellaneous Information 1 ea NOTE XX ; Start 02/13/17 at 13:00 Glucose (Glutose) 15 gm Q15M PRN PO DECREASED GLUCOSE; Start 02/13/17 at 13:00 Glucose (Glutose) 22.5 gm Q15M PRN PO DECREASED GLUCOSE; Start 02/13/17 at 13:00 Dextrose (D50w Syringe) 25 ml Q15M PRN IV DECREASED GLUCOSE; Start 02/13/17 at 13:00 Dextrose (D50w Syringe) 50 ml Q15M PRN IV DECREASED GLUCOSE; Start 02/13/17 at 13:00 Glucagon (Glucagen) 1 mg Q15M PRN IM DECREASED GLUCOSE; Start 02/13/17 at 13:00 Glucose (Glutose) 15 gm Q15M PRN BUCCAL DECREASED GLUCOSE; Start 02/13/17 at 13: 00 WINSTON CRUZ MD February 14, 2017 08:27
[2017-02-14] MEDS ORDERED: WARFARIN 7.5 MG TAB PO SCH ×2 (08:30→17:00)
[2017-02-14] MEDS: INSULIN ASPART [NOVOLOG] 3 ML PEN SC SCH ×4 (08:45→20:27)
[2017-02-14] MEDS: DOCUSATE SODIUM 100 MG CAP PO SCH ×2 (08:53→20:15)
[2017-02-14] MEDS: FERROUS FUMARATE (SR) TAB PO SCH ×2 (08:53→20:15)
[2017-02-14] MEDS: LISINOPRIL 20 MG TAB PO SCH (08:54)
[2017-02-14] MEDS: AMLODIPINE 5 MG TAB PO SCH (08:54)
[2017-02-14] MEDS: METOPROLOL 100 MG TAB PO SCH ×2 (08:55→20:15)
[2017-02-14] MEDS: DEXTROSE 5%-LR 1,000 ML IV SCH (12:11)
[2017-02-14 14:00] VITALS: BP 130/74; PULSE 74; RESP 18
--- NOTE | 2017-02-14 14:45 | OPR ---
DATE OF OPERATION: TOTAL KNEE REPLACEMENT TEMPLATE #1 SURGEON: Herbert. Esteban MD MACHINE PACKAGE SEALER: Dex Ayoub ANESTHESIOLOGIST: Dr. Gupta PREOPERATIVE DIAGNOSIS: Exceedingly severe degenerative osteoarthritis of the right knee. POSTOPERATIVE DIAGNOSIS: Exceedingly severe degenerative osteoarthritis of the right knee. OPERATION PERFORMED: Total knee replacement (arthroplasty of the knee, condylar plateau medial and lateral compartments with patella resurfacing, CPT 14691). FINDINGS AT SURGERY: The patient found to have exceedingly severe degenerative osteoarthritis of th e right knee affecting all three compartments of the knee. His bone quality was adequate, but not a s good as one might expect from a 56-year-old male. The patellar tendon attachment to the tibia was somewhat tenuous and was therefore reinforced with a Mitek anchor. The arthritis of the knee was f ound to be exceedingly severe, affecting all three compartments of the knee. The intercondylar notc h was practically overgrown with osteophytes. There were huge osteophytes around the entire distal femoral condyles. There is no remaining articular cartilage on the patella. JUSTIFICATION FOR SURGERY: The knee was found to have end-stage osteoarthritis. The patient is a v brian active 56-year-old male whose lifestyle is markedly affected by the arthritic knee. He had prev iously had a left knee replacement, but he is still quite incapacitated on account of his right knee . An extensive course of conservative care has been tried prior to embarking on the knee replacemen t operation. There can be no reasonable expectation that any further conservative treatment will ma ke any improvement to this patient's pain level and lifestyle. The risks and complications of the s urgery were discussed with the patient at the preoperative visit as well as the risks and possible c omplications of blood transfusion using hospital blood. The patient is agreeable to using hospital blood if needed. DESCRIPTION OF PROCEDURE: The patient was given intravenous antibiotics 1 hour prior to surgery. A n epidural anesthetic was initiated in the ICU holding area. The patient was taken to the operating room and given a light general anesthetic. The leg, foot, and ankle were prepared and draped in th e usual sterile fashion. The center of the ankle was marked at the midpoint between the 2 malleoli with a sterile marking pen. A tourniquet around the thigh was inflated to 275 mmHg after the leg crowell d been exsanguinated using an Esmarch bandage. The tourniquet was inflated at the initiation of pro cedure for a short period and was then again reinflated at the time of cementing the components part s. The total tourniquet time was ____minutes. A longitudinal incision was made over the anterior aspect of the knee. The incision extended from t he tibial tubercle to a point just above the patella. The medial capsule was exposed by sharp and b bill dissection, and was incised 1/4 inch medial to the patella. A marking stitch was set on each s mohit of the incision at the midpoint of the capsule so as to enable accurate reapproximation at the e nd of the operation. A vastus split was made in the vastus medialis extending from the superior nathalie e of the patella for approximately 5 cm between the line with the muscle fibers. The ends of the mu scle split at the patella were marked with a marking stitch on each side for later accurate reapprox imation. The patella was reflected laterally and osteophytes around the rim of the patella were rem ady. Osteophytes along the lateral femoral condyle were removed so as to facilitate lateral reflec tion of the patella. Posteromedial osteophytes were removed on the lateral side as well, so as to f ree up the lateral collateral ligament. Medial femoral osteophytes and posteromedial femoral osteop hytes were also removed at this time. This allowed for the knee to be brought into a more normal al ignment. A segment of bone was cut from the articular surface of the patella using a caliper to det ermine the exact thickness to be removed. The remaining thickness of the patella was 18 mm. The kn ee was flexed, and the patella was displaced laterally without eversion. Osteophytes in the femoral notch were removed. The remnants of the medial and lateral menisci were excised and the cruciate l igaments were excised. The medial collateral ligament was elevated as an osteo-periosteal flap from the proximal tibia. The distal end of the medial collateral ligament remained attached to the tibi a throughout the operation. The tibia was retracted forward with Hohmann retractor, inserted biometric fingerprinting technician ior to the midpoint of the proximal tibia. The tibial jig was set in place in such a way as to alig n longitudinally with the anterior tibial spine, with the junction of the middle and medial 2/3 of t he patella tendon, and with the posterior intercondylar eminence of the tibia. An AP and lateral x- ray was obtained with the alignment jig in place. This showed that the alignment was satisfactory a fter some slight adjustments were made. The posterior slope of the tibia was set at 6 degrees. The tibial cutting block was attached to the proximal tibia with 2 Steinmann pins. An external alignme nt barney was placed on the cutting block to confirm the alignment of the cutting block. An Medardo Wing feeler gauge was now placed on the superior aspect of the cutting block to further confirm the post erior slope of the tibia and the depth of the cut to be made. An oscillating saw was used to remove an appropriate amount of bone from the proximal tibia with the healthy side being used to measure t he cutting depth. The lateral femoral condyle of the distal femur was measured to determine the amy ropriate size for the femoral component. The anterior condyle of the femur was partially removed wi th a rongeur. A medium-sized cutting block was attached to the distal femur with 2 Steinmann pins t hrough the pin holes in the block. The external alignment jig of this cutting block was lined up wi th the anterior surface of the femur and a central intercondylar hole for the intramedullary barney was drilled through the hole in the alignment block. The block was removed. A long [place] nozzle wa s used to flush fat from the intramedullary canal. The appropriately sized cutting block was now at tached to the femur by means of an intramedullary barney. The linking guide was inserted into the slot in the base of the femoral cutting block with the knee set at 90 degrees of flexion and with the li nking guide set flush with the proximal tibial cut in order to set the appropriate rotational alignm ent on the femoral cutting block. Ligament balance was checked at this point and was found to be ve ry satisfactory. Once the rotational alignment had been determined, and the ligaments found to be b alanced, the femoral cutting block was secured to the distal femur with 2 Steinmann pins. The anter ior and posterior cuts of the distal femur were made off the femoral cutting block. The cutting blo ck was removed and a spacer block was used to measure the flexion gap which was found to be 12.5 mm. The same spacer block size without the femoral element was used with the leg in extension to determi ne the amount of distal femur to be removed in the transverse plane. A 5-degree distal cutting bloc k was now set on the femoral intramedullary barney, and the barney was inserted into the intramedullary ca nal. The appropriate amount of bone to be removed was determined. The femoral cutting block was pi nned to the anterior surface of the femur with 2 Steinmann pins. The appropriate amount of bone was resected off the distal femur to give an extension gap equal to the thickness of the flexion gap. The cut needed to be repeated after initial cut in order to produce an extension gap the same size a s the flexion gap. By using the appropriate cutting blocks, the rest of the femoral cuts were made. The femoral trial component was installed and was found to fit perfectly. The femoral trial component was removed. T shakir proximal tibia was sized, and the appropriate tibial tray selected. The central fixation hole in the tibia was made using the tibial tray template and the appropriate instruments. The femoral and tibial trials and the trial tibial insert were installed, and the patella was prepared to accept th e 38 mm-sized dome component. The trial components were all removed. The tourniquet was inflated. Soft tissues around the knee, especially the posterior capsule, were injected with a mixture of Sea opin, Toradol, morphine, and clonidine. The cut surfaces of the bones were cleaned with pulsatile W ater Jet lavage and thoroughly dried. Sclerotic bone surfaces were drilled with a 1/8-inch drill. The tibial trial component was installed with methyl methacrylate cement followed by the femoral com ponent and finally the patellar component. Cement was used on all 3 components. The cement was fin stephanie packed into the cut surfaces of the bone and pressurized with a rubber dam in order to get good interdigitation of the cement into the bone. A lateral x-ray of the knee was obtained while the reyna ent was hardening with the 12.[address] This showed that the 12.5 mm insert was the amy ropriate size. Once the cement was hard, the knee was again put through a range of motion with the 12.5 [address] insert trial in place, and this appeared to be giving a good degree of tension on the ligame nts. The cut edges of the medial capsule were held together at the midpoint with a towel clip, and t he knee was put through a full range of motion. The patella was found to track satisfactorily. A l ateral release was not required. At this point, the patella was found to track very well in the pat ellar groove of the femoral component. The knee was frequently irrigated with normal saline containing antibiotics with pulsatile lavage th roughout the entire operation as a prophylactic measure against infection. Once the cement was hard , the tourniquet was released. Bleeding points were cauterized. The total tourniquet time was ____ . The patient's vital signs remained stable throughout the operation. The permanent rotating bearing was installed. Superficial and deep Hemovac drains were set in place . The wound was closed using interrupted Vicryl on the capsule with FiberWire used at strategic poi nts such as the attachment of the distal ends of the vastus medialis at the split, and the tibial te ndon was also attached to the osteo-periosteal flap with FiberWire. The rest of the medial capsule was closed with interrupted Vicryl. A subcuticular stitch was inserted and olga were used on the skin. The usual sterile dressings were applied. A Madhu-Law compression dressing was applied a fter a sterile cooling pad had been set in place against the deep tissues by sterile cast padding. The patient's condition at the end of the procedure was satisfactory. Vital signs remained stable t hroughout the operation. The patient returned to the recovery room in stable condition. X-rays wer e obtained in the recovery room. Calf pumps were applied to both legs in the operating room. There were no problems or complications as far as we know. The sponge and instrument counts were correct . COMPONENT INFORMATION: KNEE IMPLANT TYPE: LCS. FEMORAL COMPONENT SIZE: Large TIBIAL COMPONENT SIZE: 4 PATELLAR COMPONENT SIZE: 38 mm patellar dome TIBIAL INSERT: 12.5 mm deep dish mobile bearing. IMPLANT BENEFITS COUNSELOR: [employer] [place], [place]. TOTAL TOURNIQUET TIME: ____ TOTAL BLOOD LOSS: Approximately 150 mL Dictated By: MOHAMUD CORDERO/BASILIA Conf#: [id number] DID#: [id number]
[2017-02-14 19:25] VITALS: BP 170/78; RESP 20
[2017-02-14] MEDS: ATORVASTATIN 10 MG TAB PO SCH (20:15)
[2017-02-15] MEDS: DEXTROSE 5%-LR 1,000 ML IV SCH (00:41)
[2017-02-15 01:00] VITALS: BP 157/74; PULSE 78; RESP 18
[2017-02-15] MEDS: oxyCODONE 5 MG TAB PO PRN ×6 (01:00→23:37)
[2017-02-15] MEDS: ACCU-CHEK XX SCH (02:00)
[2017-02-15] MEDS: ACETAMINOPHEN 1000MG/100ML IV 100 ML IVPB SCH (03:51)
[2017-02-15 05:42] LABS: ADD SCAN DIFF NO
[2017-02-15 05:50] LABS: BASOPHILS % 0.3 % (0.0-2.0); EOSINOPHILS # 0.1 10^3/ul (0.0-0.5); EOSINOPHILS % 1.1 % (0.0-7.0); HEMATOCRIT 35.1 % (42.0-52.0); HEMOGLOBIN 11.1 g/dl (14.0-18.0); LYMPHOCYTES # 2.1 10^3/ul (0.8-2.9); LYMPHOCYTES % 16.4 % (15.0-51.0); MEAN CORPUSCULAR HEMOGLOBIN 26.4 pg (29.0-33.0); MEAN CORPUSCULAR HGB CONC 31.6 g/dl (32.0-37.0); MEAN CORPUSCULAR VOLUME 83.4 fl (82.0-101.0); MEAN PLATELET VOLUME 10.3 fl (7.4-10.4); MONOCYTE # 1.2 10^3/ul (0.3-0.9); MONOCYTES % 9.8 % (0.0-11.0); NEUTROPHIL # 9.1 10^3/ul (1.6-7.5); NEUTROPHILS % 71.9 % (39.0-77.0); PLATELET COUNT 263 10^3/UL (140-415); RED BLOOD COUNT 4.21 10^6/ul (4.70-6.10); RED CELL DISTRIBUTION WIDTH 14.6 % (11.5-14.5); WHITE BLOOD COUNT 12.6 10^3/ul (4.8-10.8)
[2017-02-15] MEDS: PANTOPRAZOLE (EC) 40 MG TAB PO SCH (06:06)
[2017-02-15 06:09] LABS: INR 1.06; PROTIME 13.8 Sec (12.2-14.2); PT RATIO 1.1
[2017-02-15] MEDS: DEXAMETHASONE 4 MG/ML 1 ML INJ IV SCH (06:36)
[2017-02-15 08:11] VITALS: BP 155/76; PULSE 79; RESP 17
[2017-02-15] MEDS: METOPROLOL 100 MG TAB PO SCH ×2 (08:14→21:01)
[2017-02-15] MEDS: FERROUS FUMARATE (SR) TAB PO SCH ×2 (08:14→21:02)
[2017-02-15] MEDS: DOCUSATE SODIUM 100 MG CAP PO SCH ×2 (08:14→21:02)
[2017-02-15] MEDS: LISINOPRIL 20 MG TAB PO SCH (08:15)
[2017-02-15] MEDS: AMLODIPINE 5 MG TAB PO SCH (08:15)
--- NOTE | 2017-02-15 08:33 | PN ---
Date/Time of Note Date/Time of Note DATE: 02/15/17 TIME: 08:30 Assessment/Plan VTE Prophylaxis VTE Prophylaxis Intervention: ambulation, SCD's, other (Warfarin being monitored by charge entry.) Lines/Catheters IV Catheter Type (from Nrsg): Peripheral IV Valero in Place (from Nrsg): No Assessment/Plan Assessment/Plan -Pain Cocktail Given -Pain Meds as needed -Dress change performed today -OOB with PT -Warfarin/SCDs for DVT Prophylaxis -Continue monitoring with Internal Medicine -Patient Stable Subjective 24 Hr Interval Summary 56-year-old male postop day 2 status post right total knee arthroplasty. Patient did experience pain overnight that is currently well controlled. Patient has had physical therapy. Has complaints of stiffness to the knee. No falls. Denies any chest pain/tightness. Overall, patient states that he is doing well. Pain Control: mild Exam/Review of Systems Vital Signs Vitals Vital Signs Date Time Temp Pulse Resp B/P Pulse Ox O2 Delivery O2 Flow Rate FiO2 02/15/17 08:11 97.8 79 17 155/76 99 Room Air 02/13/17 17:44 2.0 Intake and Output 02/14/17 02/14/17 02/15/17 15:00 23:00 07:00 Intake Total 100 ml 1300 ml 1200 ml Output Total 1000 ml 1200 ml Balance 100 ml 300 ml 0 ml Exam Free Text/Dictation -Hemovac: Removed -Pain Cocktail Drains: Intact -Incision: Clean, Dry and Intact without any redness or drainage -02/14 Tibialis Anterior, EHL Gastrocnemius/Soleus and Peroneals -15 lag from full extension and patient is able to flex up to 80. Stiffness. -Normal Sensation -Palpable DP/PT, Capillary Refill <2 secs -No Distal Edema -Negative Theresa Sign/No calf pain -Toes Freely Movable Constitutional: alert, oriented, well developed Results Result Diagram: 02/15/17 0449 02/14/17 0450 MELANY MALIK PA-C February 15, 2017 08:33
[2017-02-15] MEDS: INSULIN ASPART [NOVOLOG] 3 ML PEN SC SCH ×4 (08:43→21:10)
--- NOTE | 2017-02-15 11:09 | CONS ---
Date/Time of Note Date/Time of Note DATE: 02/15/17 TIME: 11:08 Assessment/Plan Assessment/Plan Additional Assessment/Plan 1. Stable post op right knee replacement with mod pain, to be observed 1 additional day 2. iam SINGER, will observe Consultation Date/Type/Reason Admit Date/Time February 13, 2017 at 05:50 Type of Consultation: im Detailed Summary Respiratory: No cough, No shortness of breath Cardiovascular: No chest pain Gastrointestinal: no complaints Genitourinary: no complaints Musculoskeletal: bone/joint pain (mild right knee pain) Exam/Review of Systems Vital Signs Vitals Vital Signs Date Time Temp Pulse Resp B/P Pulse Ox O2 Delivery O2 Flow Rate FiO2 02/15/17 08:11 97.8 79 17 155/76 99 Room Air 02/13/17 17:44 2.0 Intake and Output 02/14/17 02/14/17 02/15/17 15:00 23:00 07:00 Intake Total 100 ml 1300 ml 1200 ml Output Total 1000 ml 1200 ml Balance 100 ml 300 ml 0 ml Exam Neck: No jvd Respiratory: clear to auscultation Cardiovascular: regular rate and rhythm Gastrointestinal: soft Extremities: No edema (and no calf tend) Results Result Diagram: 02/15/17 0449 02/14/17 0450 Results 24 hrs Laboratory Tests Test 02/14/17 12:17 02/14/17 18:07 02/14/17 20:21 02/15/17 02:15 Bedside Glucose 208 251 H 272 H 183 Test 02/15/17 04:49 02/15/17 08:23 White Blood Count 12.6 H Red Blood Count 4.21 L Hemoglobin 11.1 L Hematocrit 35.1 L Mean Corpuscular Volume 83.4 Mean Corpuscular Hemoglobin 26.4 L Mean Corpuscular Hemoglobin Concent 31.6 L Red Cell Distribution Width 14.6 H Platelet Count 263 Mean Platelet Volume 10.3 Neutrophils % 71.9 Lymphocytes % 16.4 Monocytes % 9.8 Eosinophils % 1.1 Basophils % 0.3 Nucleated Red Blood Cells % 0.0 Neutrophils # 9.1 H Lymphocytes # 2.1 Monocytes # 1.2 H Eosinophils # 0.1 Basophils # 0.0 Nucleated Red Blood Cells # 0.0 Prothrombin Time 13.8 Prothrombin Time Ratio 1.1 INR International Normalized Ratio 1.06 Bedside Glucose 177 Medications Medications Current Medications Ropivacaine 60 ml/ Morphine Sulfate 4 mg/Clonidine 100 mcg/Ketorolac Tromethamine 30 mg/Vancomycin HCl 500 mg/Sodium Chloride 50 ml INTRA-OP INJ Last administered on 02/13/17 08:16; Admin Dose 116 ML; Start 02/12/17 at 18:30; Stop 02/15/17 at 18:29 Dextrose/Lactated Ringer's (D5-Lr) 1,000 ml @ 80 mls/hr [id number] IV Last administered on 02/13/17 15:42; Admin Dose 80 MLS/HR; Start 02/13/17 at 11:11 Oxycodone HCl (Roxicodone) 20 mg Q3H PRN PO PAIN LEVEL 8-10 Last administered on 02/15/17 10:32; Admin Dose 20 MG; Start 02/13/17 at 11:30 Oxycodone HCl (Roxicodone) 10 mg Q3H PRN PO PAIN LEVEL 4-7 Last administered on 02/14/17 00:22; Admin Dose 10 MG; Start 02/13/17 at 11:30 Oxycodone HCl (Roxicodone) 5 mg Q3H PRN PO PAIN LEVEL 1-3; Start 02/13/17 at 11: 30 Zolpidem Tartrate (Ambien) 5 mg HS PRN PO INSOMNIA; Start 02/13/17 at 11:30 Miscellaneous Information (Note) NOTE XX ; Start 02/13/17 at 11:30 Dexamethasone (Decadron) 4 mg DAILY@07 IV ; Start 02/14/17 at 07:00; Stop at 06:59 Pantoprazole (Protonix Tab) 40 mg DAILY@06 PO Last administered on 02/15/17 06: 06; Admin Dose 40 MG; Start 02/15/17 at 06:00 Docusate Sodium/ Ferrous Fumarate (Merary-Sequels) 1 tab BID PO Last administered on 02/15/17 08:14; Admin Dose 1 TAB; Start 02/14/17 at 09:00 Docusate Sodium (Colace) 200 mg BID PO Last administered on 02/15/17 08:14; Admin Dose 200 MG; Start 02/14/17 at 09:00; Stop 02/17/17 at 08:59 Simethicone (Mylicon) 80 mg TID PRN PO DISTENSION/GAS/BLOATING; Start 02/13/17 at 11:30 Senna/Docusate Sodium (Senokot-S) 2 tab BID PRN PO CONSTIPATION; Start 02/13/17 at 11:30 Magnesium Hydroxide (Milk Of Mag) 30 ml HS PRN PO CONSTIPATION; Start 02/13/17 at 11:30 Bisacodyl (Dulcolax Supp) 10 mg DAILY PRN IN CONSTIPATION; Start 02/13/17 at 11: 30 Sodium Biphosphate/ Sodium Phosphate (Fleet Enema) 133 ml DAILY PRN IN CONSTIPATION; Start 02/13/17 at 11:30 Diphenhydramine HCl (Benadryl) 25 mg Q4H PRN IM ITCHING OR RASH; Start 02/13/17 at 11:30 Ketorolac Tromethamine (Toradol) 15 mg DAILY@06 PRN INJ ADMINSTER BY SURGEON ONLY; Start 02/14/17 at 06:00; Stop 02/18/17 at 05:59 Bupivacaine HCl/ Epinephrine Bitart (Marcaine 0.25%/ Epi (Sdv) 30 ml) 20 ml DAILY@06 PRN INJ ADMINSTER BY SURGEON ONLY; Start 02/14/17 at 06:00; Stop at 05:59 Naloxone HCl (Narcan) 0.2 mg Q2M PRN IV DECREASED REPIRATORY RATE; Start at 11:30 Atorvastatin Calcium (Lipitor) 10 mg HS PO Last administered on 02/14/17 20:15 ; Admin Dose 10 MG; Start 02/13/17 at 21:00 Lisinopril (Zestril) 40 mg DAILY PO Last administered on 02/15/17 08:15; Admin Dose 40 MG; Start 02/14/17 at 09:00 Amlodipine Besylate (Norvasc) 5 mg DAILY PO Last administered on 02/15/17 08:15 ; Admin Dose 5 MG; Start 02/14/17 at 09:00 Metoprolol Tartrate (Lopressor) 100 mg BID PO Last administered on 02/15/17 08: 14; Admin Dose 100 MG; Start 02/13/17 at 21:00 Diagnostic Test (Pha) (Accu-Chek) 1 ea 02 XX ; Start 02/14/17 at 02:00 Miscellaneous Information 1 ea NOTE XX ; Start 02/13/17 at 13:00 Glucose (Glutose) 15 gm Q15M PRN PO DECREASED GLUCOSE; Start 02/13/17 at 13:00 Glucose (Glutose) 22.5 gm Q15M PRN PO DECREASED GLUCOSE; Start 02/13/17 at 13:00 Dextrose (D50w Syringe) 25 ml Q15M PRN IV DECREASED GLUCOSE; Start 02/13/17 at 13:00 Dextrose (D50w Syringe) 50 ml Q15M PRN IV DECREASED GLUCOSE; Start 02/13/17 at 13:00 Glucagon (Glucagen) 1 mg Q15M PRN IM DECREASED GLUCOSE; Start 02/13/17 at 13:00 Glucose (Glutose) 15 gm Q15M PRN BUCCAL DECREASED GLUCOSE; Start 02/13/17 at 13: 00 WINSTON CRUZ MD February 15, 2017 11:09
[2017-02-15] MEDS ORDERED: WARFARIN 10 MG TAB PO ONE (11:30)
[2017-02-15] MEDS ORDERED: WARFARIN 5 MG TAB PO SCH (12:30)
[2017-02-15 16:00] VITALS: BP 132/74; PULSE 78; RESP 18
[2017-02-15 20:52] VITALS: BP 153/93; RESP 20
[2017-02-15] MEDS: ATORVASTATIN 10 MG TAB PO SCH (21:02)
[2017-02-16] MEDS: ACCU-CHEK XX SCH (02:00)
[2017-02-16 05:03] LABS: ADD SCAN DIFF NO
[2017-02-16 05:11] LABS: BASOPHILS % 0.3 % (0.0-2.0); EOSINOPHILS # 0.3 10^3/ul (0.0-0.5); EOSINOPHILS % 2.6 % (0.0-7.0); HEMATOCRIT 35.2 % (42.0-52.0); HEMOGLOBIN 11.7 g/dl (14.0-18.0); LYMPHOCYTES # 2.5 10^3/ul (0.8-2.9); LYMPHOCYTES % 19.9 % (15.0-51.0); MEAN CORPUSCULAR HEMOGLOBIN 27.3 pg (29.0-33.0); MEAN CORPUSCULAR HGB CONC 33.2 g/dl (32.0-37.0); MEAN CORPUSCULAR VOLUME 82.1 fl (82.0-101.0); MEAN PLATELET VOLUME 10.1 fl (7.4-10.4); MONOCYTE # 1.3 10^3/ul (0.3-0.9); MONOCYTES % 10.1 % (0.0-11.0); NEUTROPHIL # 8.5 10^3/ul (1.6-7.5); NEUTROPHILS % 66.7 % (39.0-77.0); PLATELET COUNT 290 10^3/UL (140-415); RED BLOOD COUNT 4.29 10^6/ul (4.70-6.10); RED CELL DISTRIBUTION WIDTH 14.3 % (11.5-14.5); WHITE BLOOD COUNT 12.7 10^3/ul (4.8-10.8)
[2017-02-16] MEDS: oxyCODONE 5 MG TAB PO PRN ×2 (05:18→12:08)
[2017-02-16] MEDS: PANTOPRAZOLE (EC) 40 MG TAB PO SCH (05:18)
[2017-02-16 05:27] LABS: CALCIUM 9.4 mg/dl (8.4-10.2); CREATININE 0.59 mg/dl (0.61-1.24); INR 1.14; PHOSPHORUS 3.4 mg/dl (2.5-4.9); POTASSIUM 3.8 mmol/L (3.5-5.1); PROTIME 14.6 Sec (12.2-14.2); PT RATIO 1.1
[2017-02-16] MEDS: DEXAMETHASONE 4 MG/ML 1 ML INJ IV SCH (06:35)
--- NOTE | 2017-02-16 08:12 | PN ---
Date/Time of Note Date/Time of Note DATE: 02/16/17 TIME: 08:10 Assessment/Plan VTE Prophylaxis VTE Prophylaxis Intervention: ambulation, SCD's, other (On warfarin.) Lines/Catheters IV Catheter Type (from Nrsg): Saline Lock Valero in Place (from Nrsg): No Assessment/Plan Assessment/Plan -Pain Cocktail Given. Catheters removed. Dermabond applied. -Pain Meds as needed -Dress change performed today -Anticoagulation that will be monitored by appeals specialist for DVT Prophylaxis x 6 weeks outpatient discussed. -Continue monitoring as outpatient on discharge -Follow-up at scheduled postop outpatient appointment or sooner if there is any issue. -Tegaderm dressings given with specific instructions to use as outpatient to keep wound dry until olga are moved around 10 days. -Patient Stable -Discharge to Home with home health Subjective 24 Hr Interval Summary 56-year-old male postop day 3 status post right total knee arthroplasty. Denies any pain complaints. Patient did not have physical therapy session yesterday is physical therapist called in sick. Patient has been performing range of motion while in the bed and has been getting up out of bed frequently to go to the bathroom and walk around the room. Continues with stiffness to the knee. Denies any other complaints. Exam/Review of Systems Vital Signs Vitals Vital Signs Date Time Temp Pulse Resp B/P Pulse Ox O2 Delivery O2 Flow Rate FiO2 02/15/17 20:52 98.5 106 20 153/93 98 02/15/17 16:00 Room Air 02/13/17 17:44 2.0 Intake and Output 02/15/17 02/15/17 02/16/17 15:00 23:00 07:00 Intake Total 1600 ml 1200 ml Output Total 1200 ml Balance 400 ml 1200 ml Exam Free Text/Dictation -Hemovac: Removed -Pain Cocktail Drains: Intact -Incision: Clean, Dry and Intact without any redness or drainage -02/14 Tibialis Anterior, EHL Gastrocnemius/Soleus and Peroneals -Patient is able to extend with 10 lag from full extension. Flexing up to 90 today. Complaints of stiffness. -Normal Sensation -Palpable DP/PT, Capillary Refill <2 secs -No Distal Edema -Negative Theresa Sign/No calf pain -Toes Freely Movable Constitutional: alert, oriented, well developed Results Result Diagram: 02/16/17 0442 02/16/17 0442 MELANY MALIK PA-C February 16, 2017 08:12
--- NOTE | 2017-02-16 08:15 | DS ---
Date/Time of Note Date/Time of Note DATE: 02/16/17 TIME: 08:13 Discharge Summary Admission/Discharge Info Admit Date/Time February 13, 2017 at 05:50 Discharge Date/Time 02/16/17 Final Diagnosis Status post right total knee arthroplasty. Patient Condition: Stable Hospital Course On the day of admission, the patient underwent right total knee arthroplasty Intraoperative complications: None Postoperative complications: None The patient was given prophylactic antibiotics and anticoagulants. On the day of surgery and first postoperative day patient was started on gait training and was taught usual restrictions following knee replacement Suction drain removed on the first postoperative day and the dressings were changed. The wound was found to be clean and healing well. There was no sign of infection. Pain cocktail given. On the second postoperative day, patient continued with inpatient PT. Had complaints of stiffness to the knee. Dressings were changed. Wound was found to be clean and healing well. No signs of infection. Pain cocktail given. On the day of discharge, the wound was clean and healing well; there was no sign of infection. The dressings were changed. Discharge Temperature: 98.1 Discharge White Blood Cell Count: 12.7 Discharge Hemoglobin: 11.7 The patient was discharged home with home health provided by [facility]. Arrangements were made for visiting nurses and home health/physical therapy. Tegaderm with pad also provided for patient. Instructions given on how to use to keep wound dry while showering. Patient may discontinue use of Tegaderm with pad after olga have been removed around 10 days postoperatively. The patient will be seen in office at scheduled postoperative evaluation date given on their preoperative exam. Should patient complain of any problems prior to scheduled postoperative evaluation date, they may call into outpatient clinic to determine if they need to be scheduled at sooner appointment to be seen immediately if needed. Discharge medications: As per medication reconciliation form Diet: Same as preadmission diet. This is Melany Gregory PA-C dictating discharge summary for Dr. Magdy Orellana. Home Meds Reported Medications Gabapentin* (Neurontin*) 300 Mg Capsule, 300 MG PO DAILY, #60 CAP 02/13/17 Lorazepam* (Ativan*) 0.5 Mg Tablet, 0.5 MG PO Q8 Y for ANXIETY, #60 TAB 02/13/17 Pseudoephedrine Hcl (Sudafed 12 Hour) 120 Mg Tablet.sa, 60 MG PO 02/13/17 Diphenhydramine Hcl (Benadryl Allergy) 25 Mg Tablet, 50 MG PO, TAB 02/13/17 Metaxalone (Metaxalone) 400 Mg Tablet, 400 MG PO, TAB 02/13/17 Amlodipine Besylate* (Amlodipine Besylate*) 5 Mg Tablet, 5 MG PO BID, #30 TAB 02/13/17 Metoprolol Succinate* (Toprol XL*) 100 Mg Tab.sr.24h, 100 MG PO BID, #30 TAB 02/13/17 Lisinopril* (Lisinopril*) 40 Mg Tablet, 40 MG PO DAILY, #30 TAB 02/13/17 Lansoprazole* (Lansoprazole*) 30 Mg Capsule.dr, 30 MG PO DAILY, CAP 02/13/17 Atorvastatin Calcium (Atorvastatin Calcium) 10 Mg Tablet, 10 MG PO QHS, #30 TAB 02/13/17 Hydrocodone/Acetaminophen ([place] 10-325 Tablet) 1 Each Tablet, 1 EACH PO Y for PAIN, TAB 02/13/17 Follow-up Plan March 04, 2017 at 2:15 PM at outpatient office. Pending Labs Laboratory Tests Test 02/15/17 08:23 02/15/17 12:30 02/15/17 17:39 02/15/17 21:06 Bedside Glucose 177mg/dL (70-220) 205mg/dL (70-220) 184mg/dL (70-220) 279mg/dL (70-220) Test 02/16/17 02:44 02/16/17 04:42 Bedside Glucose 174mg/dL (70-220) White Blood Count 12.710^3/ul (4.8-10.8) Red Blood Count 4.2910^6/ul (4.70-6.10) Hemoglobin 11.7g/dl (14.0-18.0) Hematocrit 35.2% (42.0-52.0) Mean Corpuscular Volume 82.1fl (82.0-101.0) Mean Corpuscular Hemoglobin 27.3pg (29.0-33.0) Mean Corpuscular Hemoglobin Concent 33.2g/dl (32.0-37.0) Red Cell Distribution Width 14.3% (11.5-14.5) Platelet Count 95619^3/UL (140-415) Mean Platelet Volume 10.1fl (7.4-10.4) Neutrophils % 66.7% (39.0-77.0) Lymphocytes % 19.9% (15.0-51.0) Monocytes % 10.1% (0.0-11.0) Eosinophils % 2.6% (0.0-7.0) Basophils % 0.3% (0.0-2.0) Nucleated Red Blood Cells % 0.0/100WBC (0.0-0.0) Neutrophils # 8.510^3/ul (1.6-7.5) Lymphocytes # 2.510^3/ul (0.8-2.9) Monocytes # 1.310^3/ul (0.3-0.9) Eosinophils # 0.310^3/ul (0.0-0.5) Basophils # 0.010^3/ul (0.0-0.1) Nucleated Red Blood Cells # 0.010^3/ul (0.0-0.0) Prothrombin Time 14.6Sec (12.2-14.2) Prothrombin Time Ratio 1.1 INR International Normalized Ratio 1.14 Sodium Level 135mmol/L (135-144) Potassium Level 3.8mmol/L (3.5-5.1) Chloride Level 98mmol/L (97-110) Carbon Dioxide Level 31mmol/L (21-31) Anion Gap 10 (8-16) Blood Urea Nitrogen 11mg/dl (7-20) Creatinine 0.59mg/dl (0.61-1.24) Glucose Level 196mg/dl (70-220) Calcium Level 9.4mg/dl (8.4-10.2) Phosphorus Level 3.4mg/dl (2.5-4.9) Magnesium Level 2.0mg/dl (1.7-2.5) MELANY MALIK PA-C February 16, 2017 08:15
[2017-02-16 08:31] VITALS: BP 152/69; RESP 18
[2017-02-16 08:39] VITALS: BP 161/84; RESP 20
[2017-02-16] MEDS: FERROUS FUMARATE (SR) TAB PO SCH (08:44)
[2017-02-16] MEDS: DOCUSATE SODIUM 100 MG CAP PO SCH (08:44)
[2017-02-16] MEDS: AMLODIPINE 5 MG TAB PO SCH (08:45)
[2017-02-16] MEDS: LISINOPRIL 20 MG TAB PO SCH (08:45)
[2017-02-16] MEDS: METOPROLOL 100 MG TAB PO SCH (08:46)
[2017-02-16] MEDS: INSULIN ASPART [NOVOLOG] 3 ML PEN SC SCH ×2 (09:06→12:23)
--- NOTE | 2017-02-16 11:10 | CONS ---
Date/Time of Note Date/Time of Note DATE: 02/16/17 TIME: 11:09 Assessment/Plan Assessment/Plan Additional Assessment/Plan 1. Doing well post post op knee replacement 2. Can dc today with follow up prox friday Consultation Date/Type/Reason Admit Date/Time February 13, 2017 at 05:50 Type of Consultation: im Detailed Summary Respiratory: cough, No shortness of breath Cardiovascular: No chest pain, No edema Gastrointestinal: no complaints Genitourinary: no complaints Musculoskeletal: bone/joint pain (mild right knee pain) Exam/Review of Systems Vital Signs Vitals Vital Signs Date Time Temp Pulse Resp B/P Pulse Ox O2 Delivery O2 Flow Rate FiO2 02/16/17 08:39 98.1 84 20 161/84 98 02/15/17 16:00 Room Air 02/13/17 17:44 2.0 Intake and Output 02/15/17 02/15/17 02/16/17 15:00 23:00 07:00 Intake Total 1600 ml 1200 ml Output Total 1200 ml Balance 400 ml 1200 ml Exam Neck: No jvd Respiratory: clear to auscultation Cardiovascular: regular rate and rhythm Gastrointestinal: soft Extremities: No edema (and no calf tend bilat) Results Result Diagram: 02/16/17 0442 02/16/17 0442 Results 24 hrs Laboratory Tests Test 02/15/17 12:30 02/15/17 17:39 02/15/17 21:06 02/16/17 02:44 Bedside Glucose 205 184 279 H 174 Test 02/16/17 04:42 02/16/17 08:30 White Blood Count 12.7 H Red Blood Count 4.29 L Hemoglobin 11.7 L Hematocrit 35.2 L Mean Corpuscular Volume 82.1 Mean Corpuscular Hemoglobin 27.3 L Mean Corpuscular Hemoglobin Concent 33.2 Red Cell Distribution Width 14.3 Platelet Count 290 Mean Platelet Volume 10.1 Neutrophils % 66.7 Lymphocytes % 19.9 Monocytes % 10.1 Eosinophils % 2.6 Basophils % 0.3 Nucleated Red Blood Cells % 0.0 Neutrophils # 8.5 H Lymphocytes # 2.5 Monocytes # 1.3 H Eosinophils # 0.3 Basophils # 0.0 Nucleated Red Blood Cells # 0.0 Prothrombin Time 14.6 H Prothrombin Time Ratio 1.1 INR International Normalized Ratio 1.14 Sodium Level 135 Potassium Level 3.8 Chloride Level 98 Carbon Dioxide Level 31 Anion Gap 10 Blood Urea Nitrogen 11 Creatinine 0.59 L Glucose Level 196 Calcium Level 9.4 Phosphorus Level 3.4 Magnesium Level 2.0 Bedside Glucose 195 Medications Medications Current Medications Oxycodone HCl (Roxicodone) 20 mg Q3H PRN PO PAIN LEVEL 8-10 Last administered on 02/16/17 05:18; Admin Dose 20 MG; Start 02/13/17 at 11:30 Oxycodone HCl (Roxicodone) 10 mg Q3H PRN PO PAIN LEVEL 4-7 Last administered on 02/14/17 00:22; Admin Dose 10 MG; Start 02/13/17 at 11:30 Oxycodone HCl (Roxicodone) 5 mg Q3H PRN PO PAIN LEVEL 1-3; Start 02/13/17 at 11: 30 Zolpidem Tartrate (Ambien) 5 mg HS PRN PO INSOMNIA; Start 02/13/17 at 11:30 Miscellaneous Information (Note) NOTE XX ; Start 02/13/17 at 11:30 Dexamethasone (Decadron) 4 mg DAILY@07 IV ; Start 02/14/17 at 07:00; Stop at 06:59 Pantoprazole (Protonix Tab) 40 mg DAILY@06 PO Last administered on 02/16/17 05: 18; Admin Dose 40 MG; Start 02/15/17 at 06:00 Docusate Sodium/ Ferrous Fumarate (Merary-Sequels) 1 tab BID PO Last administered on 02/16/17 08:44; Admin Dose 1 TAB; Start 02/14/17 at 09:00 Docusate Sodium (Colace) 200 mg BID PO Last administered on 02/16/17 08:44; Admin Dose 200 MG; Start 02/14/17 at 09:00; Stop 02/17/17 at 08:59 Simethicone (Mylicon) 80 mg TID PRN PO DISTENSION/GAS/BLOATING; Start 02/13/17 at 11:30 Senna/Docusate Sodium (Senokot-S) 2 tab BID PRN PO CONSTIPATION Last administered on 02/16/17 05:18; Admin Dose 2 TAB; Start 02/13/17 at 11:30 Magnesium Hydroxide (Milk Of Mag) 30 ml HS PRN PO CONSTIPATION Last administered on 02/15/17 14:05; Admin Dose 30 ML; Start 02/13/17 at 11:30 Bisacodyl (Dulcolax Supp) 10 mg DAILY PRN [place] CONSTIPATION; Start 02/13/17 at 11: 30 Sodium Biphosphate/ Sodium Phosphate (Fleet Enema) 133 ml DAILY PRN [place] CONSTIPATION; Start 02/13/17 at 11:30 Diphenhydramine HCl (Benadryl) 25 mg Q4H PRN IM ITCHING OR RASH; Start 02/13/17 at 11:30 Ketorolac Tromethamine (Toradol) 15 mg DAILY@06 PRN INJ ADMINSTER BY SURGEON ONLY; Start 02/14/17 at 06:00; Stop 02/18/17 at 05:59 Bupivacaine HCl/ Epinephrine Bitart (Marcaine 0.25%/ Epi (Sdv) 30 ml) 20 ml DAILY@06 PRN INJ ADMINSTER BY SURGEON ONLY; Start 02/14/17 at 06:00; Stop at 05:59 Naloxone HCl (Narcan) 0.2 mg Q2M PRN IV DECREASED REPIRATORY RATE; Start at 11:30 Atorvastatin Calcium (Lipitor) 10 mg HS PO Last administered on 02/15/17 21:02 ; Admin Dose 10 MG; Start 02/13/17 at 21:00 Lisinopril (Zestril) 40 mg DAILY PO Last administered on 02/16/17 08:45; Admin Dose 40 MG; Start 02/14/17 at 09:00 Amlodipine Besylate (Norvasc) 5 mg DAILY PO Last administered on 02/16/17 08:45 ; Admin Dose 5 MG; Start 02/14/17 at 09:00 Metoprolol Tartrate (Lopressor) 100 mg BID PO Last administered on 02/16/17 08: 46; Admin Dose 100 MG; Start 02/13/17 at 21:00 Diagnostic Test (Pha) (Accu-Chek) 1 ea 02 XX ; Start 02/14/17 at 02:00 Miscellaneous Information 1 ea NOTE XX ; Start 02/13/17 at 13:00 Glucose (Glutose) 15 gm Q15M PRN PO DECREASED GLUCOSE; Start 02/13/17 at 13:00 Glucose (Glutose) 22.5 gm Q15M PRN PO DECREASED GLUCOSE; Start 02/13/17 at 13:00 Dextrose (D50w Syringe) 25 ml Q15M PRN IV DECREASED GLUCOSE; Start 02/13/17 at 13:00 Dextrose (D50w Syringe) 50 ml Q15M PRN IV DECREASED GLUCOSE; Start 02/13/17 at 13:00 Glucagon (Glucagen) 1 mg Q15M PRN IM DECREASED GLUCOSE; Start 02/13/17 at 13:00 Glucose (Glutose) 15 gm Q15M PRN BUCCAL DECREASED GLUCOSE; Start 02/13/17 at 13: 00 WINSTON CRUZ MD February 16, 2017 11:10
[2017-02-16] MEDS ORDERED: WARFARIN 10 MG TAB PO SCH (11:30)
[2017-02-16] MEDS ORDERED: WARFARIN 5 MG TAB PO SCH (12:30)
== END 2017-02-16 14:02 | disposition home health service (06) | DRG 470 ==
LOC: REC 02-13 05:50 → MS1 02-13 16:35
PROC: 0SRC0J9 Replacement of Right Knee Joint with Synthetic Substitute, Cemented, Open Approach (ICD-10-PCS; principal; 2017-02-13 07:30)
DX: M17.11 Unilateral primary osteoarthritis, right knee (principal); I10 Essential (primary) hypertension; E11.9 Type 2 diabetes mellitus without complications; E78.5 Hyperlipidemia, unspecified; D50.9 Iron deficiency anemia, unspecified; K21.9 Gastro-esophageal reflux disease without esophagitis; Z96.652 Presence of left artificial knee joint; Z79.4 Long term (current) use of insulin; Z90.49 Acquired absence of other specified parts of digestive tract; Z98.84 Bariatric surgery status
CPT/HCPCS: 73560; 80048; 80053; 82962; 83036; 83735; 84100; 85025; 85610; 86850; 86900; 86901; 86920; 97110; 97116; 97162; 97530; C1713; C1776; J0131; J0690; J0735; J1100; J1815; J1885; J2274; J2405; J2795; J3370; J7120; J7121

== ENCOUNTER → 2017-02-05 | Outpatient (CLI) | payer BC ==
--- NOTE | 2017-02-07 03:08 | HKNOTE ---
DATE OF SERVICE: 02/05/2017 The patient comes in for preoperative evaluation. He is scheduled to have a right total knee replac ement on 02/11/2017. He has been cleared for surgery by Dr. Danish Smith. He has not given any blood for autotransfusion. He understands the risks associated with using hospital blood. He is ag reeable to using hospital blood if needed. He has read my booklet on knee arthritis and knee replac ement surgery. He has also taken a look at my website, [employer]. The patient has previousl y undergone a left knee replacement with Dr. De León, so he has some good idea of what is involved . Dictated By: MOHAMUD CORDERO/BASILIA Conf#: [id number] DID#: [id number]
== END | disposition home or self-care (01) ==
LOC: HKI 14:09
DX: Z01.818 Encounter for other preprocedural examination (principal); M25.561 Pain in right knee
CPT/HCPCS: G0463

== ENCOUNTER → 2017-03-06 | Outpatient (CLI) | payer BC ==
[~2017-03-06] MED LIST: AMLO-145 PO; ATOR10TA65 PO; DIPH25TA68 PO; GABA300C PO; HYDR-902 PO; LANS30CA PO; LISI40TA9 PO; LORA-441 PO; META400T PO; METO100T13 PO; PSEU120T51 PO
--- NOTE | 2017-03-06 16:08 | PN ---
Date/Time of Note Date/Time of Note DATE: 03/06/17 TIME: 16:03 Outpatient Progress Note Chief Complaint 3 week postop appointment HPI 56-year-old male presents today for three-week postoperative appointment status post right total knee replacement on 02/14/2017. Patient states that he is doing "very well" with no pain complaints to the right knee. He does have neuropathic complaints in regards to burning, primarily to the distal right knee. Denies any falls. Denies any instability to the right knee. Patient is very pleased status post surgery. Patient states that he is having increased left knee pain. Patient has had left total knee replacement about 6 months ago. Has no complications to the left knee but after the surgery he is having increased pain primarily to the lateral compartment of the knee. Continues with at home physical therapy in which she states has been helping. Denies any chest pain/tightness or calf pain. Review of Systems Const: No Fever, no chills, no Fatigue, normal appetite, no diaphoresis. Resp: No SOB, no wheezing, no chest pain. CV: No chest pain, no palpitaions, no FLORES. Physical Exam Blood pressure is 154/81, temperature is 97.7, pulse is 78, respiratory rate is 12, height is 5 foot 11 inches, weight is 310 pounds General Appearance: well-developed, well-nourished, in no acute distress. Right knee: No tenderness to palpation. Surgical wound is clean dry and intact and healing well. Radha have been removed. Steri-Strips are intact. Normal sensory examination to light touch. Negative Homans sign. Patient is able to fully extend and is able to actively flex up to 95. Patient can walk independently but presents with walker today. Patient states that he does not use walker at home but when he is outside he uses a walker. 5 out of 5 strength with resistance on flexion and extension. Left knee: No palpable laxity to the patella/patellar tendon. No instability on exam. Patient is able to flex up to 120 with full extension and patella is tracking along the patellar groove. No tenderness to palpation on exam today. 5/5 strength on resistance. Allergies Coded Allergies: No Known Allergies (Unverified Allergy, Unknown, 02/13/17) Assessment/Plan -Wound healing well after staple removal. No signs of infection. -Continue ASA 325 mg twice daily for DVT prophylaxis until 6 weeks status post surgery. -No signs of DVT. -Patient progressing well. -Follow-up at 6 week postop appointment. X-rays will be performed at 6 weeks postoperative appointment. -Patient made aware that they may follow-up sooner, should they experience any issues or complications as we will be glad to see them. -Order for outpatient physical therapy given today with focus on improved range of motion. Advised to stop at home physical therapy. -Advised to use anti-inflammatories as needed for the left knee. No signs of any injury or complication to previous total knee replacement on the left side. We will continue to monitor. Medications Home Meds Reported Medications Gabapentin* (Neurontin*) 300 Mg Capsule, 300 MG PO DAILY, #60 CAP 02/13/17 Lorazepam* (Ativan*) 0.5 Mg Tablet, 0.5 MG PO Q8 Y for ANXIETY, #60 TAB 02/13/17 Pseudoephedrine Hcl (Sudafed 12 Hour) 120 Mg Tablet.sa, 60 MG PO 02/13/17 Diphenhydramine Hcl (Benadryl Allergy) 25 Mg Tablet, 50 MG PO, TAB 02/13/17 Metaxalone (Metaxalone) 400 Mg Tablet, 400 MG PO, TAB 02/13/17 Amlodipine Besylate* (Amlodipine Besylate*) 5 Mg Tablet, 5 MG PO BID, #30 TAB 02/13/17 Metoprolol Succinate* (Toprol XL*) 100 Mg Tab.sr.24h, 100 MG PO BID, #30 TAB 02/13/17 Lisinopril* (Lisinopril*) 40 Mg Tablet, 40 MG PO DAILY, #30 TAB 02/13/17 Lansoprazole* (Lansoprazole*) 30 Mg Capsule.dr, 30 MG PO DAILY, CAP 02/13/17 Atorvastatin Calcium (Atorvastatin Calcium) 10 Mg Tablet, 10 MG PO QHS, #30 TAB 02/13/17 Hydrocodone/Acetaminophen ([place] 10-325 Tablet) 1 Each Tablet, 1 EACH PO Y for PAIN, TAB 02/13/17 MELANY MALIK PA-C March 06, 2017 16:08
== END | disposition home or self-care (01) ==
LOC: HKI 14:46
DX: Z47.1 Aftercare following joint replacement surgery (principal); Z96.651 Presence of right artificial knee joint

== ENCOUNTER → 2017-03-25 | Outpatient (CLI) | payer BC ==
--- NOTE | 2017-03-25 15:15 | PN ---
Date/Time of Note Date/Time of Note DATE: 03/25/17 TIME: 15:05 Outpatient Progress Note Chief Complaint 6 week follow-up status post right total knee replacement HPI 56-year-old male presents today for 6 week postoperative appointment status post right total knee arthroplasty performed on 02/14/2017. Patient states that his pain has significantly improved as it is a 0-1/10 on average. Important to note however, patient has history of long-term chronic pain management in which she was taking [place] 10/325 mg around 8 times per day. Pain medications have been managed by Dr. Monk, his primary care. Patient states that his functionality and activity has improved as he is able to climb up and down stairs comfortably. He is walking short and long distances without any falls or repeat injuries. Patient is currently undergoing physical therapy which has been helping but continues with some stiffness with flexion and extension to the knee. Review of Systems Const: No Fever, no chills, no Fatigue, normal appetite, no diaphoresis. Resp: No SOB, no wheezing, no chest pain. CV: No chest pain, no palpitaions, no FLORES. Physical Exam Blood pressure is 146/74, temperature is 90.7, pulse is 94, respiratory rate is 12, height is 5 foot 11 inches, weight is 310 pounds. General Appearance: well-developed, well-nourished, in no acute distress. Right knee: Patient is using single-point cane. Gait has improved with assisted ambulation. 10 lag from full extension on exam today with flexion up to about 90. No pain with range of motion today. No tenderness to palpation. Wound continues to heal well with no signs of any complications. Imaging X-ray of the right knee performed on 03/25/2017 showing all components appearing well aligned, attached and integrated to the bone. Patella slightly along the medial side. Mild varus angulation on AP view. Allergies Coded Allergies: No Known Allergies (Unverified Allergy, Unknown, 02/13/17) Assessment/Plan -Patient progressing well -Surgical wound continues to heal well. -No signs of infection or DVT on exam. -X-rays showing prosthesis well attachment to bone. -Patient continues to have stiffness with range of motion with flexion up to 90 . Advised to work on improved range of motion to the right knee. -Antibiotic prophylaxis card provided. -Follow-up 3 weeks for repeat evaluation and range of motion check. If he continues with stiffness and rigidity with no improvement, it was discussed with Dr. Orellana today that possible manipulation under anesthesia may needed. Patient is currently undergoing physical therapy at [facility] physical therapy in [place]. -Patient has been on long-term dose of [place] 10/325 mg about 8 tablets per day provided by his PCP. He was also provided with [place] postoperatively via this office. Given that patient continues with his long-term chronic dose, it was decided that patient continue with PCP to continue with pain management for chronic pain. It was also explained that it is important that patient has one sole provider who will be providing opiate medication to ensure consistency and regularity with prescriptions or any changes as needed. Dental prophylaxis discussed in detail today. Patient given prophylaxis card with antibiotic options. Should patient have allergy to specific medication ( eg penicillin) alternative options are also provided on the card. Patient is aware that antibiotics should be taken prior to any procedures to prevent increased risk of infection to the joint. Patient is aware that this will be for the rest of their life. Patient states understanding and compliance. Medications Home Meds Reported Medications Gabapentin* (Neurontin*) 300 Mg Capsule, 300 MG PO DAILY, #60 CAP 02/13/17 Lorazepam* (Ativan*) 0.5 Mg Tablet, 0.5 MG PO Q8 Y for ANXIETY, #60 TAB 02/13/17 Pseudoephedrine Hcl (Sudafed 12 Hour) 120 Mg Tablet.sa, 60 MG PO 02/13/17 Diphenhydramine Hcl (Benadryl Allergy) 25 Mg Tablet, 50 MG PO, TAB 02/13/17 Metaxalone (Metaxalone) 400 Mg Tablet, 400 MG PO, TAB 02/13/17 Amlodipine Besylate* (Amlodipine Besylate*) 5 Mg Tablet, 5 MG PO BID, #30 TAB 02/13/17 Metoprolol Succinate* (Toprol XL*) 100 Mg Tab.sr.24h, 100 MG PO BID, #30 TAB 02/13/17 Lisinopril* (Lisinopril*) 40 Mg Tablet, 40 MG PO DAILY, #30 TAB 02/13/17 Lansoprazole* (Lansoprazole*) 30 Mg Capsule.dr, 30 MG PO DAILY, CAP 02/13/17 Atorvastatin Calcium (Atorvastatin Calcium) 10 Mg Tablet, 10 MG PO QHS, #30 TAB 02/13/17 Hydrocodone/Acetaminophen ([place] 10-325 Tablet) 1 Each Tablet, 1 EACH PO Y for PAIN, TAB 02/13/17 MELANY MALIK PA-C Mar 25, 2017 15:15
--- NOTE | 2017-03-26 10:47 | RADRPT ---
PROCEDURE: XR right knee. CLINICAL INDICATION: Knee pain. TECHNIQUE: AP weightbearing, lateral weightbearing and sunrise views are available for review. COMPARISON: 02/13/2017 FINDINGS: There is a constrained total knee replacement. There is no evidence of loosening of the prosthesis. There is no evidence of hardware failure. The osseous structures are normal in mineralization, archi tecture and alignment No acute fracture or dislocation is seen.No osseous lesions are identified. T he soft tissues are unremarkable . there is a small suprapatellar joint effusion. IMPRESSION: Unremarkable constrained total knee replacement. RPTAT: [facility] .Yousif Jones MD, MD Date Time Electronically viewed and signed by .Yousif Jones MD, MD on 03/26/2017 10:46 .B/
== END | disposition home or self-care (01) ==
LOC: HKI 14:03
DX: Z47.1 Aftercare following joint replacement surgery (principal); Z96.651 Presence of right artificial knee joint

== ENCOUNTER → 2017-04-17 | Outpatient (CLI) | payer BC ==
--- NOTE | 2017-04-17 16:25 | PN ---
Date/Time of Note Date/Time of Note DATE: 04/17/17 TIME: 14:16 Outpatient Progress Note Chief Complaint 3 week range of motion check to the right knee. HPI 56-year-old male presents today for three-week appointment for range of motion check to the right knee. He is about 9 weeks status post right total knee replacement. Patient was seen about 3 weeks ago with limited range of motion and difficulty flexing past 60 and lag on extension. Was seen with Dr. Orellana 3 weeks ago and he recommended patient follow-up in 3 weeks after continuing some more physical therapy to improve range of motion. Patient states that his range of motion has improved with physical therapy. He does still have complaints of stiffness with range of motion. Using single-point cane for assisted ambulation. Review of Systems Const: No Fever, no chills, no Fatigue, normal appetite, no diaphoresis. Resp: No SOB, no wheezing, no chest pain. CV: No chest pain, no palpitaions, no FLORES. Physical Exam Blood pressure is 139/72, temperature is 97.7, pulse is 80, respiratory rate is 12, height is 5 foot 11 inches, weight is 310 pounds General Appearance: well-developed, well-nourished, in no acute distress. Right knee: Gait is abnormal with slight limp and assisted ambulation using cane. Patient has about 10-15 lag from full extension. Patient is able to flex up to 110 today. No tenderness to palpation to the right knee. Normal sensory examination to light touch. 4+/5 strength on resistance with flexion/ extension. Allergies Coded Allergies: No Known Allergies (Unverified Allergy, Unknown, 02/13/17) Assessment/Plan * Range of motion has improved. * Dr. Orellana is made patient aware that manipulation under anesthesia has small likelihood to improve lag of extension in regards to scar formation. * Continue with physical therapy. Additional prescription provided today. * Dr. Orellana would like patient to follow-up in 6 weeks for repeat range of motion check. At home exercises also discussed. Dr. Orellana was present for examination and agrees with plan. Medications Home Meds Reported Medications Gabapentin* (Neurontin*) 300 Mg Capsule, 300 MG PO DAILY, #60 CAP 02/13/17 Lorazepam* (Ativan*) 0.5 Mg Tablet, 0.5 MG PO Q8 Y for ANXIETY, #60 TAB 02/13/17 Pseudoephedrine Hcl (Sudafed 12 Hour) 120 Mg Tablet.sa, 60 MG PO 02/13/17 Diphenhydramine Hcl (Benadryl Allergy) 25 Mg Tablet, 50 MG PO, TAB 02/13/17 Metaxalone (Metaxalone) 400 Mg Tablet, 400 MG PO, TAB 02/13/17 Amlodipine Besylate* (Amlodipine Besylate*) 5 Mg Tablet, 5 MG PO BID, #30 TAB 02/13/17 Metoprolol Succinate* (Toprol XL*) 100 Mg Tab.sr.24h, 100 MG PO BID, #30 TAB 02/13/17 Lisinopril* (Lisinopril*) 40 Mg Tablet, 40 MG PO DAILY, #30 TAB 02/13/17 Lansoprazole* (Lansoprazole*) 30 Mg Capsule.dr, 30 MG PO DAILY, CAP 02/13/17 Atorvastatin Calcium (Atorvastatin Calcium) 10 Mg Tablet, 10 MG PO QHS, #30 TAB 02/13/17 Hydrocodone/Acetaminophen ([place] 10-325 Tablet) 1 Each Tablet, 1 EACH PO Y for PAIN, TAB 02/13/17 MELANY MALIK PA-C Apr 17, 2017 14:27
== END | disposition home or self-care (01) ==
LOC: HKI 13:51
DX: Z47.1 Aftercare following joint replacement surgery (principal); Z96.651 Presence of right artificial knee joint

== ENCOUNTER → 2017-05-21 | Outpatient (CLI) | payer BC ==
--- NOTE | 2017-05-21 14:30 | PN ---
Date/Time of Note Date/Time of Note DATE: 05/21/17 TIME: 14:21 Outpatient Progress Note Chief Complaint Right knee pain HPI 56-year-old male presents today for follow-up regarding right knee pain. He is status post right total knee replacement on 02/14/2017. Patient is also had left total knee replacement in September [address] De León. Most recent right total knee replacement was performed by Dr. Orellana. Patient states that he has ongoing pain in which she is unable to continue working. He is requesting one-year disability through the [employer] skilled nursing group. Patient states that he is unable to perform his obligations of his occupation due to pain. Patient has been seen by his primary care provider Dr. Smith earlier today who states that he is willing to help in regards to disability but would like consultation with this office first. Patient states that he does feel that he is developed a dependency to opiate pain medication as he has been on chronic opioids for over 10 years. Patient states that he has been taking at least 8 tablets a day and the most recent past and has been trying to cut down to 4 tablets a day of [place] 10/325 mg. Denies any falls or injury to the right knee. Denies any chest pain/tightness. Patient states that he has improved with range of motion to the right knee. He continues with lag of extension. Review of Systems Const: No Fever, no chills, no Fatigue, normal appetite, no diaphoresis. Resp: No SOB, no wheezing, no chest pain. CV: No chest pain, no palpitaions, no FLORES. Physical Exam Blood pressure is 163/84, temperature is 98.1, pulse is 70, respiratory rate is 18, height is 5 foot 11 inches, weight is 320 pounds. General Appearance: well-developed, well-nourished, in no acute distress. Right knee: Well-healed surgical scarring to the right knee. Patient has about 5-10 lack from full extension. Active range of motion is up to 115 today. Pain when patient reaches maximal level of range of motion. Patient is now walking independently without assisted ambulatory device. Normal sensory examination to light touch. No tenderness to palpation. 5/5 strength on resistance. Allergies Coded Allergies: No Known Allergies (Unverified Allergy, Unknown, 02/13/17) Assessment/Plan * CURES report obtained with most recent [place] 10/325 mg prescription at a quantity of #275 tablets on 05/09/2017. * Dr. Orellana was present for examination and discussion regarding concern regarding dependency and possibly end-stage addiction to opiate medications had. It is difficult to assess whether true pain is from possible opiate induced hyperalgesia versus pain status post surgery. It is under the impression that there is possibly a mixture of the 2 but it is difficult to assess what is causing the true pain that patient is experiencing. * Lengthy discussion had with Dr. Orellana today and he has recommended that patient initiate treatment in regards to reduction of opiate pain medication/ dependency and once patient has had a minimum of 2 sessions, he was advised to present with documentation confirming the initiation of ongoing therapy and at that point, paperwork requesting a year disability can be reviewed and possibly filled out. Patient was made aware that typically disability would be for about 3-6 months status post joint replacement but patient states that the [id number] group that he is a part of only approved for 1 year. Prior to consideration of a year disability, Dr. Orellana would like to ensure that patient is reducing opioids in a safe manner to prevent end- stage addiction and lower suspicion into opiate-induced hyperalgesia. * Patient will follow-up once he has initiated treatment at rehabilitation clinic and further evaluation will be had. Patient is in agreement with plan. * Some information was provided in regards to treatment center. Patient was referred to [facility] today. Dr. Orellana was present for examination today and agrees with plan. Medications Home Meds Reported Medications Gabapentin* (Neurontin*) 300 Mg Capsule, 300 MG PO DAILY, #60 CAP 02/13/17 Lorazepam* (Ativan*) 0.5 Mg Tablet, 0.5 MG PO Q8 Y for ANXIETY, #60 TAB 02/13/17 Pseudoephedrine Hcl (Sudafed 12 Hour) 120 Mg Tablet.sa, 60 MG PO 02/13/17 Diphenhydramine Hcl (Benadryl Allergy) 25 Mg Tablet, 50 MG PO, TAB 02/13/17 Metaxalone (Metaxalone) 400 Mg Tablet, 400 MG PO, TAB 02/13/17 Amlodipine Besylate* (Amlodipine Besylate*) 5 Mg Tablet, 5 MG PO BID, #30 TAB 02/13/17 Metoprolol Succinate* (Toprol XL*) 100 Mg Tab.sr.24h, 100 MG PO BID, #30 TAB 02/13/17 Lisinopril* (Lisinopril*) 40 Mg Tablet, 40 MG PO DAILY, #30 TAB 02/13/17 Lansoprazole* (Lansoprazole*) 30 Mg Capsule.dr, 30 MG PO DAILY, CAP 02/13/17 Atorvastatin Calcium (Atorvastatin Calcium) 10 Mg Tablet, 10 MG PO QHS, #30 TAB 02/13/17 Hydrocodone/Acetaminophen ([place] 10-325 Tablet) 1 Each Tablet, 1 EACH PO Y for PAIN, TAB 02/13/17 MELANY MALIK PA-C May 21, 2017 14:30
== END | disposition home or self-care (01) ==
LOC: HKI 13:25
DX: M25.561 Pain in right knee (principal); Z96.651 Presence of right artificial knee joint
CPT/HCPCS: G0463